=== PATIENT | female | born 1940 | race Caucasian/White ===

== ENCOUNTER 2018-01-07 10:02 | Inpatient (IN) | payer MEDICARE, OTHER, SELFPAY ==
[2018-01-01 10:03] VITALS: BMI 25.7
[2018-01-07] VITALS (21 sets, daily range): BP systolic 96–134; BP diastolic 37–73; PULSE 80–110; RESP 8–17; TEMP 36.1–36.9; O2SAT 90–98; BMI 25.7
--- NOTE | 2018-01-07 | DI.RAD.S_ITS ---
PROCEDURE: XR LUMBAR SPINE 2-3V INDICATIONS: L1-L4 XLIF AND LAMI TECHNIQUE: 2 views of the lumbar spine were acquired. COMPARISON: None. FINDINGS: Intraoperative images demonstrating posterior fixation from L1-L4. Hardware appears intact. There is trace retrolisthesis of L1 on L2 as well as possibly L3 on L4. Hardware obscures the lateral level. IMPRESSION: Postoperative changes above. Dictated by: Erum Smith M.D. on 01/07/2018 at 18:15 Approved by: Erum Smith M.D. on 01/07/2018 at 18:17
[2018-01-07] MEDS: LACTATED RINGERS 1,000 ML 42 ML IV ×3 (11:05→17:06)
--- NOTE | 2018-01-07 11:17 | PM.PREOP ---
Pre-operative Note Interval Note Pre-op Check: History & Physical Reviewed by Physician and Exam Performed
--- NOTE | 2018-01-07 11:32 | PM.OP.1 ---
Operative Date/Time/Diagnoses - Date of procedure: 01/07/18 Time of procedure: 17:58 Pre-op diagnosis: Lumbar stenosis with radiculopathy Lumbar scoliosis History of lumbar fusion Post-op diagnosis: same Procedure & Clinicians Procedure: L1-2, L2-3, L3-4 anterior fusion with cages L1-2, L2-3, L3-4 posterior fusion with screws Iliac crest bone graft Removal of previous hardware L-S1 L3-4 laminectomy Use of microscope Placement of epidural catheter Same procedure as scheduled: Yes Indications: [age] year old female with intractable pain from spinal stenosis. They had failed conservative management and requested operative intervention. Risks and benefits of surgery were discussed and appropriate consents were obtained. Surgeon: Campos Dias Transitional Studies Instructor: Justine Godinez Anesthesia Type: General Operative Notes Findings: none Closure Type: primary Specimen(s): none sent Implants & Drains: NuVasive Reline MAS screws and XLIF cages Estimated Blood Loss (mL): 200 Procedure in detail: Patient was brought to the operating room and intubated on the table. Time-out was performed. They were then rolled over to the lateral decubitus position with the [id number]. The table was bent and they were taped down in the correct position. X-rays were taken to confirm a true AP and lateral. Preoperative antibiotics. The left flank was prepped and draped in standard sterile fashion. Using fluoroscopy, a 3 cm incision was made above the iliac crest. We bluntly dissected down with Metzenbaum scissors and split the 3 abdominal muscle layers. We dissected out the retroperitoneal space and using finger guidance, brought our 1st dilator down to the psoas muscle. Using neuromonitoring and fluoroscopy, we placed it through the psoas onto the L1-2 disc space in an anterior position and gradually pulled the dilator posteriorly along the disc space. We placed our guidewire and measured our depth for the retractor. We then dilated with the next 2 dilators and then placed our retractor over the dilators. Position was confirmed with fluoroscopy and the retractor was locked down to the bar. We opened up the retractor and checked with neuro monitoring. We then placed the kelli and again checked with neuro monitoring. The retractor was opened further and the ALL retractor was placed. An annulotomy was performed. We then performed a complete diskectomy with ring curette, pituitary, box osteotome. A Quesada was advanced across the disc space under fluoroscopy to release the lateral annulus on the opposite side. We then used sequentially larger trials and confirmed under fluoroscopy. An XL IF cage was packed with Osteocell bone graft and impacted into the L1-2 disc space with fluoroscopy for the anterior fusion at this level. The wound was irrigated. The retractor was closed down. The kelli was removed. We carefully removed through a tractor with direct visualization to make sure there was no neurovascular or abdominal injury. X-rays were taken. We then went to the L3-4 and used the same approach with dilating, diskectomy, annular release, and placement of the cage packed with bone graft for the anterior fusion at this level. The retractor was again carefully removed under direct visualization and x-rays were taken. We then went up to L4-5 and used the same approach with dilating, diskectomy, annular release, and placement of the cage packed with bone graft for the anterior fusion at this level. The retractor was again carefully removed under direct visualization and final x-rays were taken The muscle fascia was closed, superficial tissue was closed. The skin was closed. Sterile dressing was placed. The patient was then rolled over on the well-padded prone position on the Ron table. Using fluoroscopy for localization, a 10 cm incision was made to the right of the midline. We split the lumbodorsal fascia. We exposed her old screw at L4 and exposed the screws from L4 through S1. These were Synthes Click-X screws. They were removed with the screwdrivers. We used a ball probe to feel for a floor and 4 arita of the L4 pedicle and then placed a guidewire down that, tapped over it, and placed a larger screw shank into L4 in the previous hole. We then used a Jamshidi needle and using fluoro and monitoring, percutaneously placed this down the pedicle of L3 on the right. This was changed out to a guidewire, tapped and the other screw shank was placed into the L3 bone. The Maxcess retractor was opened up and the gutter and lamina were exposed. We used a bur to decorticate the transverse process of L3 and the previous fusion mass from her old fusion at L4. We then brought the microscope in. A combination of bur and Kerrison rongeur was used to perform a laminectomy at L3-4. We had to remove her massive right sided facet and the the canal was open. We went across the midline and carefully depress the dura and decompressed the full canal. The neural foramina were opened. An epidural catheter was primed and advanced cephalad 6cm under the remaining lamina. The retractor was carefully removed. We then used Jamshidi needles to cannulate the pedicles of L2 and L1 with neuro monitoring and fluoro. We changed these to guidewires. The gutter was exposed and the transverse processes of L1 and L2 were also burred. We then tapped and placed our screws into L1 and L2. The screw heads were placed onto L3 and L4. The cruzito was measured and bent and placed into the screws and the set screws were locked down. The wound was copiously irrigated. A small stab incision was made over the PSIS and a Jamshidi needle was placed into the iliac crest and several mL of bone marrow was aspirated. This was mixed with our locally harvested bone graft as well as the remaining Osteocell and cancellous chips and placed in the posterolateral gutter for fusion at L1-2, L2-3, L3-4. The fascia was then closed. The epidural catheter was then injected with 4mL of 0.5% bupivacaine, 100 mcg fentanyl, 4 mg Duramorph, 1 mg Stadol and removed. We then went to the opposite side and made an 8 cm longitudinal incision with fluoro. We split down and expose the screw head of L4 on the left. We were able to remove the screw heads on the upper 2 screws but the screw head at S1 was stripped. We used a cutting bur tip to split through the cruzito and then the S1 screw was removed helicopter style. We removed the other 2 screws as well. We then used the same techniques to place screws on the left-hand side from L1 through 4 using a Jamshidi, guidewire, tapping, and screw placement all with fluoro and neuro monitoring. The cruzito was placed and locked down. The wound was irrigated. The fascia was closed. Vancomycin powder was placed in the wounds. The superficial and skin were closed. Sterile dressings were placed. The patient was then rolled over, extubated, brought to the recovery room with no complications. Complications: none Condition: stable Disposition: PACU Plan for aftercare: Inpatient. Up with physical therapy.
[2018-01-07] MEDS: CLINDAMYCIN 900 MG/50 ML PIGGYBACK 50 MG IV (12:23)
--- NOTE | 2018-01-07 13:41 | SUR.OPER ---
Right lateral on padded OR table. Head on pillow, gel axillary roll, pillow to support left arm. Legs flexed, pillows between legs, gel pad under down leg and ankle. Multiple passes of 3 inch cloth tape across shoulder, hip, upper and lower legs to secure patient on OR table. for the 2nd part og the case, position switches to Prone on spine table, head in foam head support, padded chest and pelvic supports, gel pad at knees, lower legs supported by pillows; nipples, genitalia and toes free of pressure, arms secured on foam padded arm boards at <90 degrees abduction. Tape over blanket at thigh secured to table.
[2018-01-07] MEDS: VANCOMYCIN 1,000 MG VIAL 1000 MG TOP (13:52)
[2018-01-07] MEDS: THROMBIN (BOVINE) 5,000 UNIT VIAL 5000 UNIT TOP (13:52)
[2018-01-07] MEDS: SODIUM CHLORIDE 0.9% 1,000 ML, GENTAMICIN 80 MG IRR ×2 (13:53→13:56)
[2018-01-07] MEDS: BUPIVACAINE 0.5% (PF) 4 ML, MORPHINE-PF 4 MG, BUTORPHANOL 1 MG, fentaNYL 100 MCG INJ (13:53)
--- NOTE | 2018-01-07 19:26 | SUR.PHASEI ---
Discussed with Dr Wagoner VS and post op findings to 191 and he gives approval to transfer to [facility].
[2018-01-07] MEDS: SODIUM CHLORIDE 0.9% 1,000 ML 125 ML IV (20:34)
[2018-01-07] MEDS: CLINDAMYCIN 600 MG/50 ML PIGGYBACK 50 MG IV (20:35)
[2018-01-08] VITALS (8 sets, daily range): BP systolic 97–141; BP diastolic 47–67; PULSE 89–127; RESP 16–20; TEMP 36.1–38; O2SAT 93–95
[2018-01-08] MEDS: OXYCODONE IR 5 MG TABLET PO ×2 (02:06→04:36)
[2018-01-08] MEDS: CLINDAMYCIN 600 MG/50 ML PIGGYBACK 50 MG IV (04:24)
[2018-01-08 05:44] LABS: Hematocrit 29.6 % (36-46); Hemoglobin 9.6 g/dL (12.0-16.0)
[2018-01-08 05:52] LABS: BUN Creatinine Ratio 17.1 (6-22); Calcium 8.8 mg/dL (8.4-10.2); Estimated Glomerular Filt Rate > 60.0 mL/min (>60); Glucose 98 mg/dL (80-110); HEMOLYSIS < 15 (0-50); Potassium 4.3 mmol/L (3.4-5.1); Sodium 136 mmol/L (137-145)
[2018-01-08] MEDS: SODIUM CHLORIDE 0.9% 1,000 ML 125 ML IV ×3 (06:42→17:38)
[2018-01-08] MEDS: OXYCODONE IR 5 MG TABLET 10 MG PO ×4 (07:02→18:45)
[2018-01-08] MEDS: GABAPENTIN 100 MG CAPSULE 200 MG PO (07:03)
--- NOTE | 2018-01-08 08:14 | P.PN_ITS ---
Subjective Interval history: Pain is 8/10 with moving, all back and abdomen. Leg not bothering her so far. Date Patient Seen: 01/08/18 Time Patient Seen: 08:12 Exam Vital Signs (past 8 hours): Vital Signs - 8 hr 3 01/08/18 05:42 Temperature 97.0 F L Pulse Rate 89 Respiratory Rate 16 Blood Pressure 97/55 L Pulse Oximetry 95 Pulse Oximetry 95 Oxygen Delivery Method Room Air Oxygen Flow Rate 0 Const Orientation: alert and oriented x3 Back/Spine/Pelvis Other: dressing 2cm dry drainage 5/5 motor BLE Objective Labs Result Diagrams: 01/08/18 05:22 01/08/18 05:22 Labs: Laboratory Results - last 24 hr 01/08/18 01/08/18 05:22 05:22 Hgb 9.6 L Hct 29.6 L Sodium 136 L Potassium 4.3 Chloride 102.0 Carbon Dioxide 28.0 BUN 12.0 Creatinine 0.70 Estimated GFR > 60.0 BUN/Creatinine Ratio 17.1 Glucose 98 Calcium 8.8 Assessment & Plan Post-op Postoperative Procedures Operation Date: 01/07/18 11:45 Actual Procedures Side Surgeon p L1-2,L2-3,L3-4 Ant/Post Instru Fusion w/Bone Graft, L3-4 laminectomy Removal Previous Screws Campos Dias MD Normal postop pain. nerve pain seems much better now after surgery. Plan for mobilization with PT. She lives alone and will probably need a snf before being safe enough to go home. Time Spent With Patient less than 15 minutes Quality VTE Deep Vein Thrombosis/Pulmonary Embolism Present on Admission: No
[2018-01-08] MEDS: MORPHINE 4 MG/ML INJ IV ×2 (08:37→21:27)
[2018-01-08] MEDS: ONDANSETRON 4 MG/2 ML INJ IV (08:55)
[2018-01-08] MEDS: lamoTRIgine 100 MG TABLET PO ×3 (09:59→21:50)
[2018-01-08] MEDS: ESTRADIOL 0.5 MG TABLET PO (09:59)
[2018-01-08] MEDS: DOCUSATE 100 MG CAPSULE PO ×2 (09:59→21:51)
[2018-01-08] MEDS: OXYBUTYNIN 5 MG TABLET PO ×2 (09:59→21:51)
[2018-01-08] MEDS: PANTOPRAZOLE 40 MG TABLET PO (10:01)
--- NOTE | 2018-01-08 12:19 | PT.IIE ---
Physical Therapy Inpatient Evaluation/Re-Eval M1 PT/OT-IP Prior Functional Status Start: 01/08/18 08:12 Freq: NEEDED Status: Active Protocol: Document 01/08/18 11:44 RS (Rec: 01/08/18 12:19 [id number]) Medical Review Prior Functional Status Medical History Reviewed Yes Mobility and Gait mod ind w/ FWW Prior Functional Level (Other details) drives. Social History Household Members none Living Arrangements Apartment/Condo Number of Floors (Floors) One Floor Number of Stairs To Enter/Railing? 0STE Home Equipment Front Wheel Walker Employment Status Retired M2 PT-IP Current Condition Start: 01/08/18 08:12 Freq: NEEDED Status: Active Protocol: Document 01/08/18 11:44 RS (Rec: 01/08/18 12:19 [id number]) Physical Therapy Current Condition Current Condition Evaluation Date 01/08/18 Treatment Diagnosis impaired mobility s/p L1-L4 lami revision Onset Date 01/07/18 Post Operative Precautions Lumbar Precautions Log Roll No Twisting Limit Bending Lifting Restriction of 10 lbs Gait Belt above Incisional Area M3 PT-IP Subjective Start: 01/08/18 08:12 Freq: NEEDED Status: Active Protocol: Document 01/08/18 11:44 RS (Rec: 01/08/18 12:19 [id number]) Subjective Physical Therapy Visit Type Type Initial Evaluation Visit Start Time 11:09 Visit Stop Time 11:44 Total Visit Minutes 35 Physical Therapy Visit Comments Patient Comments Pt reports not sleeping very well. Patient/Caregiver Goals less pain, go home Therapy Pain Assessment Pain When Pain Assessed During Mobility Pain Present Pain Present Pain Reported Location Back Intensity 7 Scale Used Numeric (1 - 10) Description Aching Spasm Stabbing Throbbing With Movement Pain Behaviors Facial Grimacing Wincing Pain Management Techniques Apply Cold Modification of Treatment Re-positioning Timing of Activity with Medications M4 PT-IP Mobility and Gait Start: 01/08/18 08:12 Freq: NEEDED Status: Active Protocol: Document 01/08/18 11:44 RS (Rec: 01/08/18 12:19 [id number]) PT-Bed Mobility Assessment Rolling Type of Rolling Log Rolling Roll to Left Level of Assist Maximal Assistance 1 Person Assistance Supine to Sit Supine to Sit Maximum Assistance 2 Person Assistance Bedrails Scooting Scooting to Edge of Bed Maximum Assistance PT-Transfer Assessment Sit to and From Stand Sit to and from Stand Contact Guard Assistance 1 Person Assistance Use of Upper Extremities Equipment Transfer Assistive Device Gait Belt Front Wheeled Walker Transfers Transfer Destination Chair Transfer Technique Stand Step Pivot Transfer Ability Level of Assist Contact Guard Assistance 1 Person Assistance Use of Upper Extremities Gait Assessment Gait Gait Assistance Required: Contact Guard Assist 1 Person Assist Distance (Feet) (feet) 5 Assistive Devices Assistive Device Gait Belt Front Wheeled Walker Gait Deviations General Gait Pattern Antalgic Decreased Stride Length Decreased Feet Clearance Factors Limiting Gait Function Factors Limiting Gait Function Decreased Activity Tolerance Decreased Strength Pain Comments Gait Comments gait is slow, pt began to feel woozy for only walked a short distance. PT-Balance Assessment Sitting Balance and Reactions Static Sitting Balance Ability Good Dynamic Sitting Balance Ability Fair Standing Balance and Reactions Static Standing Balance Ability Fair Dynamic Standing Balance Ability Fair Device Used FWW M5 PT-IP Objective Assessments Start: 01/08/18 08:12 Freq: NEEDED Status: Active Protocol: Document 01/08/18 11:44 RS (Rec: 01/08/18 12:19 [id number]) Orientation Orientation/Cognition Level of Alertness Alert Gross Range of Motion Lower Extremity ROM Assessment Within Functional Limits Strength Comments Strength Comments BLE not formally assessed, functionally strong enough to mobilize out of bed. M6 PT-IP Treatment Start: 01/08/18 08:12 Freq: NEEDED Status: Active Protocol: Document 01/08/18 11:44 RS (Rec: 01/08/18 12:19 RS [id number]) Physical Therapy Treatment Education Post-Op Education Precautions Post-Op Packet Safety M7 PT-IP Assessment and Plan Start: 01/08/18 08:12 Freq: NEEDED Status: Active Protocol: Document 01/08/18 11:44 RS (Rec: 01/08/18 12:19 RS [id number]) PT Summary Assessment and Plan Potential Rehabilitation Potential Good Status of Condition at Evaluation Stable Summary Impairments Pain Strength Bed Mobility Transfers Gait Activity Tolerance Progress Towards Goals Progressing Toward Goals Assessment Summary Pt presents with deficits and functional impairments as expected after a lumbar lami revision. 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 Once pt is out of bed she's able to mobilize at mostly a CGA for short distances. It really is unsafe for pt to return home at this time and she would benefit from ongoing daily low intensity therapy in order to optimize independence. For these reasons transition to a SNF for rehab is recommended. Goals Bed Mobility Goal Minimal Assistance Transfer Goal Contact Guard Assistance Front Wheeled Walker Gait Goal Contact Guard Assistance Front Wheel Walker Gait Distance 50 Days to Meet Goals 2 Frequency of Treatment Frequency Of Treatment Twice a Day Treatment Plan Physical Therapy Treatment Plan Bed Mobility Training Transfer Training Gait Training Therapeutic Exercise Hot or Cold Pack Recommendations To Nursing Amount of Assist Needed 1 Person Assist 2 Person Assist Discharge Recommendations PT Discharge Recommendations SNF Rehab Visit Care Team Role Provider Type Campos Dias MD Admit Provider Physician Attending Provider Current Diagnoses Other forms of scoliosis, lumbar region (01/07/18) Spinal stenosis, lumbar region with neurogenic claudication (01/07/18) Medical History (Last Updated 01/05/18 @ 08:33 by Marry Conklin RN) Anemia (Acute) Arthritis (Acute) Bigeminy (Acute) Bipolar 1 disorder (Acute) CVA (cerebral vascular accident) (Acute) Chronic back pain (Acute) Depression (Acute) GERD (gastroesophageal reflux disease) (Acute) HTN (hypertension) (Acute) History of hysterectomy (Acute) History of revision of total replacement of right knee joint (Acute) Osteoporosis (Acute) Right hemiparesis (Acute) Right radial fracture (Acute) Scoliosis (Acute) Seizure (Acute) Wrist fracture (Acute) Surgery Performed Operation Date: 01/07/18 11:45 Actual Procedures p L1-2,L2-3,L3-4 Ant/Post Instru Fusion w/Bone Graft, L3-4 laminectomy Removal Previous Screws - Campos Dias MD Surgical History (Last Updated 01/01/18 @ 10:16 by Marry Conklin RN) History of arthroplasty of both knees (Acute) History of arthroplasty of left ankle (Acute) History of cataract extraction with lens replacement (Acute) Hx of appendectomy (Acute) Hx of craniotomy (Acute) Hx of hernia repair (Acute) Hx of laminectomy (Acute) S/P Achilles tendon repair (Acute) S/P bunionectomy (Acute) Status post epidural steroid injection (Acute) Status post total shoulder arthroplasty (Acute)
--- NOTE | 2018-01-08 12:31 | CM.DPNOTE ---
PT recommending SNF. Patient agreeable. Patient provided with Medicare choice list and wish to discuss [facility] SNFs with daughter. Patient will provide preferences to CM. Patient is medicare eligible for SNF on Thursday01/10/18.
--- NOTE | 2018-01-08 12:53 | OT.IP.TRT ---
Current Diagnoses Other forms of scoliosis, lumbar region (01/07/18) Spinal stenosis, lumbar region with neurogenic claudication (01/07/18) Surgery Performed Operation Date: 01/07/18 11:45 Actual Procedures p L1-2,L2-3,L3-4 Ant/Post Instru Fusion w/Bone Graft, L3-4 laminectomy Removal Previous Screws - Campos Dias MD Occupational Therapy Treatment Note M2 OT-IP Current Condition Start: 01/08/18 12:37 Freq: Status: Active Protocol: Document 01/08/18 12:38 ADH (Rec: 01/08/18 12:53 ADH [id number]) Occupational Therapy Current Condition Current Condition Evaluation Date 01/08/18 Treatment Diagnosis L1-L4 fusion Diagnosis Onset Date 01/07 Post Operative Precautions Lumbar Precautions Log Roll No Twisting Limit Bending Lifting Restriction of 10 lbs Gait Belt above Incisional Area M3 OT- IP Subjective and Pain Start: 01/08/18 12:37 Freq: Status: Active Protocol: Document 01/08/18 12:38 ADH (Rec: 01/08/18 12:53 ADH [id number]) OT- Subjective Occupational Therapy Visit Type Type Initial Evaluation Visit Start Time 10:55 Visit Stop Time 11:34 Total Visit Minutes 39 Notes Pt agreeable to OT eval, premedicated. OT Pain Assessment Pain When Pain Assessed At Rest Pain Present Pain Present Pain Reported Location Back Intensity 7 Scale Used Numeric (1 - 10) Description Dull Pressure Pain Behaviors Facial Grimacing Guarding Management Techniques Apply Cold Distraction Modification of Treatment Re-positioning Timing of Activity with Medications M4 OT- IP ADL's Start: 01/08/18 12:37 Freq: Status: Active Protocol: Document 01/08/18 12:38 ADH (Rec: 01/08/18 12:53 ADH [id number]) OT ADL-Toileting Comments OT Toileting Comments Dependant d/t catheter M6 OT- IP Functional Cognition Start: 01/08/18 12:37 Freq: Status: Active Protocol: Document 01/08/18 12:38 ADH (Rec: 01/08/18 12:53 ADH [id number]) Cognitive Factors Limiting Selfcare Function Cognitive Ability Level of Alertness Alert Patient Orientation Name Birthday Month Date Year Day of Week Place Situation Attention Span Ability Capable of Focused Attention Capable of Sustained Attention Ability to Follow Commands Able to Follow Multi-Step Commands Memory Description No Deficits Noted Safety Awareness No Deficits Noted Problem Solving Ability No deficits Noted Executive Function Ability No Deficits Noted OT- Vision and Hearing OT- Hearing Assessment OT- Hearing Assessment WFL OT- Vision Assessment Visual Acuity Glasses For Reading Visual Attentiveness WFL M7 OT- IP Mobility and Balance Start: 01/08/18 12:37 Freq: Status: Active Protocol: Document 01/08/18 12:38 ADH (Rec: 01/08/18 12:53 ADH [id number]) OT- Bed Mobility Assessment Rolling Type of Rolling Log Rolling Level of Assistance Moderate Assistance Supine to Sit Supine to Sit Assist Moderate Assistance OT-Transfer Assessment Sit to and From Stand Sit to and from Stand Moderate Assistance Transfers Transfer Ability Minimal Assistance Technique Transfer Destination Chair Transfer Technique Stand Step Pivot Devices Transfer Assistive Devices Front Wheeled Walker M9 OT- IP Assessment and Plan Start: 01/08/18 12:37 Freq: Status: Active Protocol: Document 01/08/18 12:38 ADH (Rec: 01/08/18 12:53 ADH [id number]) OT Summary Assessment and Plan Potential Rehabilitation Potential Excellent Analytic Complexity at Evaluation Low Summary OT Impairments Pain Tone Assessment Summary Pt with good participation in OT eval post op day #1. Pt's progression, transfers, and mobility will be affected by residual affects of previous CVA. Pt noted to have increased tone and rigidity of RUE shoulder through wrist, 0 -70 degree foward flexion at shoulder. Pt able to open all digits with effort and tone, no reports of pain Goals Dressing Goal Minimal Assistance Toileting Goal Minimal Assistance Toilet Transfer Goal Contact Guard Assistance Frequency of Treatment Frequency Of Treatment Once a Day Treatment Plan OT Treatment Plan ADL Training Patient/Family Education Discharge Planning Discharge Recommendations OT Discharge Recommendations SNF Rehab Other Discharge Recommendations Recc pt d/c to SNF with increased supervision and care d/t insufficient support at home, and pt's estimated recovery would benefit from PT /OT
[2018-01-08] MEDS: DOCUSATE 100 MG CAPSULE 400 MG PO (13:29)
--- NOTE | 2018-01-08 14:21 | PT.IPTN ---
Current Diagnoses Other forms of scoliosis, lumbar region (01/07/18) Spinal stenosis, lumbar region with neurogenic claudication (01/07/18) Surgery Performed Operation Date: 01/07/18 11:45 Actual Procedures p L1-2,L2-3,L3-4 Ant/Post Instru Fusion w/Bone Graft, L3-4 laminectomy Removal Previous Screws - Campos Dias MD Physical Therapy Treatment Note M2 PT-IP Current Condition Start: 01/08/18 08:12 Freq: NEEDED Status: Active Protocol: Document 01/08/18 11:44 RS (Rec: 01/08/18 12:19 RS [id number]) Physical Therapy Current Condition Current Condition Evaluation Date 01/08/18 Treatment Diagnosis impaired mobility s/p L1-L4 lami revision Onset Date 01/07/18 Post Operative Precautions Lumbar Precautions Log Roll No Twisting Limit Bending Lifting Restriction of 10 lbs Gait Belt above Incisional Area M3 PT-IP Subjective Start: 01/08/18 08:12 Freq: NEEDED Status: Active Protocol: Document 01/08/18 14:02 RS (Rec: 01/08/18 14:21 RS [id number]) Subjective Physical Therapy Visit Type Type Treatment Note Visit Start Time 13:17 Visit Stop Time 14:02 Total Visit Minutes 45 Physical Therapy Visit Comments Patient Comments Pt initially reporting just wanting to keep resting but with encouragement was agreeable to participate. Therapy Pain Assessment Pain When Pain Assessed At Rest Pain Present Pain Present Pain Reported Location Back Intensity 5 Scale Used Numeric (1 - 10) Description Aching Spasm Stabbing Tender Throbbing With Movement Pain Behaviors Facial Grimacing Moaning Restlessness Wincing Pain Management Techniques Apply Cold Re-positioning Timing of Activity with Medications M4 PT-IP Mobility and Gait Start: 01/08/18 08:12 Freq: NEEDED Status: Active Protocol: Document 01/08/18 14:02 RS (Rec: 01/08/18 14:21 RS [id number]) PT-Bed Mobility Assessment Rolling Level of Assist Moderate Assistance 2 Person Assistance Sit to Supine Sit to Supine Maximum Assistance 2 Person Assistance PT-Transfer Assessment Sit to and From Stand Sit to and from Stand Minimal Assistance 1 Person Assistance Use of Upper Extremities Equipment Transfer Assistive Device Gait Belt Front Wheeled Walker Transfers Transfer Destination Bed Transfer Technique Stand Step Pivot Transfer Ability Level of Assist Contact Guard Assistance 1 Person Assistance Use of Upper Extremities M5 PT-IP Objective Assessments Start: 01/08/18 08:12 Freq: NEEDED Status: Active Protocol: Document 01/08/18 11:44 RS (Rec: 01/08/18 12:19 RS [id number]) Orientation Orientation/Cognition Level of Alertness Alert Gross Range of Motion Lower Extremity ROM Assessment Within Functional Limits Strength Comments Strength Comments BLE not formally assessed, functionally strong enough to mobilize out of bed. M6 PT-IP Treatment Start: 01/08/18 08:12 Freq: NEEDED Status: Active Protocol: Document 01/08/18 11:44 RS (Rec: 01/08/18 12:19 RS [id number]) Physical Therapy Treatment Education Post-Op Education Precautions Post-Op Packet Safety M7 PT-IP Assessment and Plan Start: 01/08/18 08:12 Freq: NEEDED Status: Active Protocol: Document 01/08/18 14:02 RS (Rec: 01/08/18 14:21 RS [email or web address]) PT Summary Assessment and Plan Summary Impairments Pain Strength Bed Mobility Transfers Gait Activity Tolerance Progress Towards Goals Progressing Toward Goals Slow Progress due to Pain Assessment Summary Pt continues to report moderate pain levels (~5/10) at rest but jumps up to 8-9/10 with any activity. Despite this pt was more than willing to participate in session today, however, it was limited due to significant wooziness in standing. BP did not drop compared to sitting. Standing from chair was attempted a few times with the same result each time. Pt was finally able to make it back to bed, attempted to position pt on R side and bolstered with multiple pillows for support. Pt seemed comfortable in this position. Pt continues to present with significant mobility impairments and is unsafe to discharge directly home. Continue to recommend pt to transition to SNF rehab once medically ready. Goals Bed Mobility Goal Minimal Assistance Transfer Goal Contact Guard Assistance Front Wheeled Walker Gait Goal Contact Guard Assistance Front Wheel Walker Gait Distance 50 Days to Meet Goals 2 Frequency of Treatment Frequency Of Treatment Twice a Day Treatment Plan Physical Therapy Treatment Plan Bed Mobility Training Transfer Training Gait Training Therapeutic Exercise Hot or Cold Pack Recommendations To Nursing Amount of Assist Needed 1 Person Assist 2 Person Assist Discharge Recommendations PT Discharge Recommendations SNF Rehab
--- NOTE | 2018-01-08 14:32 | PC.NURSE ---
GOAL; PAIN MANAGEMENT. PAIN CLIMBS TO 8/10 DEPENDING ON ACTIVITY/POSITION. 5/10 AT REST. TAKING 10MG OXYCODONE Q3HRS W/ IV MORPHINE FOR BREAKTHROUGH PAIN. PATIENT C/O NAUSEA THIS AM. GIVEN ZOFRAN WITH RESOLVE. PATIENT HAS NO APPETITE. DRINKING SOME FLUIDS. IVF CONTINUES. PATIENT UP TO RECLINER W/ PHYSICAL THERAPY. NOW SIDELYING WITH SUPPORT PILLOWS AND ICE PACK. DRSG WAS SATURATED. CHANGED TO 4X4 'S X 2 AND COVERSITE, XEROFORM GAUZE LEFT IN PLACE UNDERNEATH.
[2018-01-08] MEDS: hydrOXYzine pamoate 25 MG CAPSULE PO ×2 (15:56→21:54)
--- NOTE | 2018-01-08 20:29 | PC.NURSE ---
Pt was placed on 02 @ 2L per nc for 02 sats 87-88% with sleep. 02 sats increase to 100%. Pt on continuous pulse oximetry d/t pt's sleepy state in managing pt's pain. Monitor reflects pt's heartrate 124 sustained and creeps as high as 125-127. Pt in no apparent distress. Urinary output per baldwin catheter draining freely and iv fluids continue. Tele placed on pt briefly as nursing intervention and per ICU nurse's interpretation, sinus tachycardia. Dr. Corrales was contacted by telephone and these findings were shared with MD. Per Dr. Corrales, continue to manage pt's pain and monitor for any further symptoms. Tele placed on pt as per Dr. Corrales's order and will continue to monitor. No need for hospitalist consult at this time per Dr. Corrales.
[2018-01-08] MEDS: SENNOSIDES 8.6 MG TABLET 17.2 MG PO (21:49)
[2018-01-08] MEDS: LITHIUM ER 300 MG TABLET PO (21:50)
[2018-01-08] MEDS: GABAPENTIN 400 MG CAPSULE PO (21:51)
[2018-01-08] MEDS: lamoTRIgine 25 MG CHEW TABLET PO (21:51)
[2018-01-09] VITALS (10 sets, daily range): BP systolic 125–154; BP diastolic 63–76; PULSE 111–124; RESP 16–20; TEMP 36.4–37.8; O2SAT 93–98
[2018-01-09] MEDS: OXYCODONE IR 5 MG TABLET 10 MG PO ×4 (01:23→19:20)
[2018-01-09] MEDS: SODIUM CHLORIDE 0.9% 1,000 ML 125 ML IV (02:56)
[2018-01-09] MEDS: hydrOXYzine pamoate 25 MG CAPSULE PO ×3 (02:56→19:21)
[2018-01-09] MEDS: OXYCODONE IR 5 MG TABLET PO (08:24)
[2018-01-09] MEDS: DOCUSATE 100 MG CAPSULE PO ×2 (08:31→20:04)
[2018-01-09] MEDS: lamoTRIgine 100 MG TABLET PO ×3 (08:32→20:06)
[2018-01-09] MEDS: GABAPENTIN 100 MG CAPSULE 200 MG PO (08:32)
[2018-01-09] MEDS: LISINOPRIL 20 MG TABLET PO (08:32)
[2018-01-09] MEDS: OXYBUTYNIN 5 MG TABLET PO ×2 (08:33→20:06)
[2018-01-09] MEDS: PANTOPRAZOLE 40 MG TABLET PO (08:33)
[2018-01-09] MEDS: ONDANSETRON 4 MG/2 ML INJ IV (08:59)
--- NOTE | 2018-01-09 09:03 | CM.DPC ---
Addendum entered by Jennifer Saenz LPN 01/09/18 13:11: PASRR is completed and faxed to [facility] in prep for eventual d/c there. Original Note: Addendum entered by Jennifer Saenz LPN 01/09/18 12:59: Pt with multiple comorbidities and medications. Discussed with Lawanda Reyna who agrees consideration of a medicine consult is appropriated. Discussed same with ortho SAIMA Goodwin, she agrees this is appropriate and will discuss same with hospitalist Dr. Marques. 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 She is on multiple medications to manage these conditions and now with the addition of pain medications. Shee has had multiple joint replacements and a prior spinal surgery. Original Note: DCP: continued: Case received, EMR reviewed and met with pt. Introduced self and role. Pt appears very groggy and looks uncomfortable. She confirms she has been in a lot of pain. Confirms her snf plan...defers to her daughter in law, Debora to make snf choice. She says she wants snf to be in [facility] as family are there (her DILs parents). Spoke by phone with Debora ([place]) cell [phone]). Debora states she and her are in process of moving to [facility]. Says pt was very weakened pre-surgery from the debilitating back pain and wants to make sure she is stable in terms of pain management and alertness before she does d/c. [facility] snf choices: discussed. Decision: [facility] CC: referral: Avelina: anticipates bed for pt. Clinicals to efax: [phone] per Avelina's request. Pt is updated. [facility] [place]. P: [facility] when stable for same. White board in room updated with inclusion of Debora's contact number.
--- NOTE | 2018-01-09 11:37 | P.PN_ITS ---
Subjective Date Patient Seen: 01/09/18 Time Patient Seen: 11:36 Interval history: Patient is status post lami/fusion by Dr. Dias postop day 2. Patient has not mobilize much with PT. She has been drowsy today because she was given morphine last night for pain along with oxycodone and Vistaril. Plan for her is to be discharged to [facility] when medically stable. She still has a Adams in and the nurse on the cast keep it for 1 more day because she is slow to mobilize. Care management also would like a hospitalist's consult due to her comorbidities. Exam Vital Signs (past 8 hours): Vital Signs - 8 hr 3 01/09/18 04:46 01/09/18 08:00 01/09/18 08:24 Temperature 99.6 F 99.9 F H 99.9 F H Pulse Rate 124 H 122 H Respiratory Rate 16 20 Blood Pressure 154/68 H 134/65 H Pulse Oximetry 98 95 3 01/09/18 08:32 Temperature Pulse Rate 123 H Respiratory Rate Blood Pressure Pulse Oximetry Pulse Oximetry 95 Oxygen Delivery Method Room Air Oxygen Flow Rate 0 Narrative Exam Narrative: Patient in bed. Patient seems a little drowsy. But dressings clean dry intact. 5/5 bilateral lower extremity strength. Neurovascular status intact. Objective Labs Result Diagrams: 01/08/18 05:22 01/08/18 05:22 Assessment & Plan Post-op (1) Lumbar stenosis with neurogenic claudication: Problem details: Patient is status post lami/fusion by Dr. Dias. PD 2. Pt slow to mobilize. Continue PT. Continue Adams 1 more day. IV morphine prn d/c. D/C to SNF in a few days when medically stable. Current Visit: Yes Status: Acute (2) Scoliosis of lumbar spine: Current Visit: Yes Status: Acute (3) Depression: Problem details: Continue home medication. Medical consult obtained. Current Visit: Yes Status: Acute (4) Postoperative anemia due to acute blood loss: Problem details: HH, Fe and Vt C ordered. Current Visit: Yes Status: Acute Postoperative Procedures Operation Date: 01/07/18 11:45 Actual Procedures Side Surgeon p L1-2,L2-3,L3-4 Ant/Post Instru Fusion w/Bone Graft, L3-4 laminectomy Removal Previous Screws Campos Dias MD Time Spent With Patient less than 15 minutes Quality VTE Deep Vein Thrombosis/Pulmonary Embolism Present on Admission: No
--- NOTE | 2018-01-09 12:00 | PT.IPTN ---
Current Diagnoses Acute posthemorrhagic anemia (01/07/18) Major depressive disorder, single episode, unspecified (01/07/18) Other forms of scoliosis, lumbar region (01/07/18) Scoliosis, unspecified (01/07/18) Spinal stenosis, lumbar region with neurogenic claudication (01/07/18) Surgery Performed Operation Date: 01/07/18 11:45 Actual Procedures p L1-2,L2-3,L3-4 Ant/Post Instru Fusion w/Bone Graft, L3-4 laminectomy Removal Previous Screws - Campos Dias MD Physical Therapy Treatment Note M2 PT-IP Current Condition Start: 01/08/18 08:12 Freq: NEEDED Status: Active Protocol: Document 01/09/18 11:54 RCC (Rec: 01/09/18 12:00 [facility] [id number]) Physical Therapy Current Condition Current Condition Evaluation Date 01/08/18 Treatment Diagnosis impaired mobility s/p L1-L4 lami revision Onset Date 01/07/18 Post Operative Precautions Lumbar Precautions Log Roll No Twisting Limit Bending Lifting Restriction of 10 lbs Gait Belt above Incisional Area M3 PT-IP Subjective Start: 01/08/18 08:12 Freq: NEEDED Status: Active Protocol: Document 01/09/18 11:54 RCC (Rec: 01/09/18 12:00 [facility] [id number]) Subjective Physical Therapy Visit Type Type Treatment Note Visit Start Time 11:25 Visit Stop Time 11:55 Total Visit Minutes 30 Number of [employer]OR OF [employer] Visits 0 Physical Therapy Visit Comments Patient Comments Pt agreeable to get OOB, although c/o pain with any movement (unable to rate). Therapy Pain Assessment Pain When Pain Assessed During Mobility Pain Present Pain Present Pain Reported Location Back Scale Used unable to report Description With Movement Pain Behaviors Calling Out Crying Facial Grimacing Moaning Wincing Pain Management Techniques Modification of Treatment Re-positioning M4 PT-IP Mobility and Gait Start: 01/08/18 08:12 Freq: NEEDED Status: Active Protocol: Document 01/09/18 11:54 RCC (Rec: 01/09/18 12:00 [facility] [id number]) PT-Bed Mobility Assessment Supine to Sit Supine to Sit Maximum Assistance 1 Person Assistance Scooting Scooting to Edge of Bed Maximum Assistance PT-Transfer Assessment Sit to and From Stand Sit to and from Stand Moderate Assistance 1 Person Assistance Equipment Transfer Assistive Device Gait Belt Front Wheeled Walker Transfers Transfer Destination Chair Transfer Technique Stand Step Pivot Transfer Ability Level of Assist Moderate Assistance Comments Mobility Comments Pt crying out in pain in standing, sitting, and with each transfer step. Max VC for safety with transfer. Gait Assessment Comments Gait Comments not safe to ambulate at this time. PT-Balance Assessment Sitting Balance and Reactions Static Sitting Balance Ability Fair Dynamic Sitting Balance Ability Poor Standing Balance and Reactions Static Standing Balance Ability Poor Dynamic Standing Balance Ability Poor Device Used FWW M7 PT-IP Assessment and Plan Start: 01/08/18 08:12 Freq: NEEDED Status: Active Protocol: Document 01/09/18 11:54 RCC (Rec: 01/09/18 12:00 [facility] [id number]) PT Summary Assessment and Plan Summary Impairments Pain ROM Strength Balance Cognition Bed Mobility Transfers Gait Activity Tolerance Progress Towards Goals Slow Progress due to Pain Slow Progress due to Activity Tolerance Assessment Summary Pt unable to rate pain this session, and required maximum verbal cuing in order to keep on task. Pt with crying and moaning with each transfer step using a FWW, but able to perform with Mod A. Pt comfortable in chair sitting upright with back and LE support. Pt is not able to ambulate at this time, will greatly benefit from SNF rehabilitation upon d/c. Goals Bed Mobility Goal Minimal Assistance Transfer Goal Contact Guard Assistance Front Wheeled Walker Gait Goal Contact Guard Assistance Front Wheel Walker Gait Distance 50 Days to Meet Goals 2 Treatment Plan Physical Therapy Treatment Plan Bed Mobility Training Transfer Training Gait Training Therapeutic Exercise Hot or Cold Pack Other Recommendations and Next Treatment transfer, log roll, attempt Focus gait if able Recommendations To Nursing Amount of Assist Needed 2 Person Assist Discharge Recommendations PT Discharge Recommendations SNF Rehab
[2018-01-09] MEDS: DOCUSATE 100 MG CAPSULE 400 MG PO (12:55)
[2018-01-09] MEDS: DEXAMETHASONE 10 MG/ML VIAL IV (12:55)
[2018-01-09] MEDS: ASCORBIC ACID 500 MG TABLET PO (12:56)
[2018-01-09] MEDS: FERROUS SULFATE 325 MG TABLET PO (12:56)
--- NOTE | 2018-01-09 13:34 | OT.IP.TRT ---
Current Diagnoses Acute posthemorrhagic anemia (01/07/18) Major depressive disorder, single episode, unspecified (01/07/18) Other forms of scoliosis, lumbar region (01/07/18) Scoliosis, unspecified (01/07/18) Spinal stenosis, lumbar region with neurogenic claudication (01/07/18) Surgery Performed Operation Date: 01/07/18 11:45 Actual Procedures p L1-2,L2-3,L3-4 Ant/Post Instru Fusion w/Bone Graft, L3-4 laminectomy Removal Previous Screws - Campos Dias MD Occupational Therapy Treatment Note M2 OT-IP Current Condition Start: 01/08/18 12:37 Freq: Status: Active Protocol: Document 01/08/18 12:38 ADH (Rec: 01/08/18 12:53 ADH [id number]) Occupational Therapy Current Condition Current Condition Evaluation Date 01/08/18 Treatment Diagnosis L1-L4 fusion Diagnosis Onset Date 01/07 Post Operative Precautions Lumbar Precautions Log Roll No Twisting Limit Bending Lifting Restriction of 10 lbs Gait Belt above Incisional Area M3 OT- IP Subjective and Pain Start: 01/08/18 12:37 Freq: Status: Active Protocol: Document 01/09/18 13:25 ADH (Rec: 01/09/18 13:34 ADH [id number]) OT- Subjective Occupational Therapy Visit Type Type Treatment Note Visit Start Time 01:04 Visit Stop Time 01:22 Total Visit Minutes 18 Notes Pt seen for functional mobility, positioning, and pain management as related to bADLs OT Pain Assessment Pain When Pain Assessed At Rest Pain Present Pain Present Pain Reported Location Back Pain Behaviors Calling Out Crying Facial Grimacing Moaning Restlessness Management Techniques Distraction Elevation Modification of Treatment Re-positioning M4 OT- IP ADL's Start: 01/08/18 12:37 Freq: Status: Active Protocol: Document 01/08/18 12:38 ADH (Rec: 01/08/18 12:53 ADH [id number]) OT ADL-Toileting Comments OT Toileting Comments Dependant d/t catheter M6 OT- IP Functional Cognition Start: 01/08/18 12:37 Freq: Status: Active Protocol: Document 01/08/18 12:38 ADH (Rec: 01/08/18 12:53 ADH [id number]) Cognitive Factors Limiting Selfcare Function Cognitive Ability Level of Alertness Alert Patient Orientation Name Birthday Month Date Year Day of Week Place Situation Attention Span Ability Capable of Focused Attention Capable of Sustained Attention Ability to Follow Commands Able to Follow Multi-Step Commands Memory Description No Deficits Noted Safety Awareness No Deficits Noted Problem Solving Ability No deficits Noted Executive Function Ability No Deficits Noted OT- Vision and Hearing OT- Hearing Assessment OT- Hearing Assessment WFL OT- Vision Assessment Visual Acuity Glasses For Reading Visual Attentiveness WFL M7 OT- IP Mobility and Balance Start: 01/08/18 12:37 Freq: Status: Active Protocol: Document 01/09/18 13:25 ADH (Rec: 01/09/18 13:34 ADH [email or web address]) OT- Bed Mobility Assessment Rolling Type of Rolling Log Rolling Level of Assistance Moderate Assistance Sit to Supine Sit to Supine Assist Maximum Assistance Scooting Scooting to Edge of Bed Maximum Assistance OT-Transfer Assessment Sit to and From Stand Sit to and from Stand Moderate Assistance 2 Person Assistance Transfers Transfer Ability Moderate Assistance 2 Person Assistance Technique Transfer Destination Bed Transfer Technique Stand Pivot Devices Transfer Assistive Devices Gait Belt Front Wheeled Walker Comments Mobility Comments Pt reported pain in recliner, unable to rate. Pt crying out and moaning, requesting to return to bed. Pt able to be transfered with nursing staff. OT- Gait Assessment Gait Gait Assistance Required: 2 Person Assist Able to Maintain Weight Bearing Status Yes During Gait Assistive Devices Assistive Device Gait Belt Front Wheeled Walker M9 OT- IP Assessment and Plan Start: 01/08/18 12:37 Freq: Status: Active Protocol: Document 01/09/18 13:25 ADH (Rec: 01/09/18 13:34 ADH [email or web address]) OT Summary Assessment and Plan Summary OT Impairments Pain Strength Balance Coordination Progress Towards Goals Slow Progress due to Pain Assessment Summary Pt with very slow progress in functional mobility 2' pain. Pt cont to be dependent on toileting on catheter 2' limited mobility. Pt with fair strength and balance once standing, but kept eyes closed and crying during transfer d/ 2 pain. Anticipate once pain is better managed pt will cont to progress, however anticipate pt to d/c to SNF when appropriate. Goals Dressing Goal Moderate Assistance Toileting Goal Contact Guard Assistance Toilet Transfer Goal Minimal Assistance Frequency of Treatment Frequency Of Treatment Once a Day Treatment Plan OT Treatment Plan ADL Training Functional Mobility Patient/Family Education Discharge Planning Other Treatment Recommendations and Next Address bADLs as able Treatment Focus Discharge Recommendations OT Discharge Recommendations SNF Rehab
--- NOTE | 2018-01-09 14:53 | PT.IPTN ---
Current Diagnoses Acute posthemorrhagic anemia (01/07/18) Major depressive disorder, single episode, unspecified (01/07/18) Other forms of scoliosis, lumbar region (01/07/18) Scoliosis, unspecified (01/07/18) Spinal stenosis, lumbar region with neurogenic claudication (01/07/18) Surgery Performed Operation Date: 01/07/18 11:45 Actual Procedures p L1-2,L2-3,L3-4 Ant/Post Instru Fusion w/Bone Graft, L3-4 laminectomy Removal Previous Screws - Campos Dias MD Physical Therapy Treatment Note M2 PT-IP Current Condition Start: 01/08/18 08:12 Freq: NEEDED Status: Active Protocol: Document 01/09/18 11:54 RCC (Rec: 01/09/18 12:00 RCC [id number]) Physical Therapy Current Condition Current Condition Evaluation Date 01/08/18 Treatment Diagnosis impaired mobility s/p L1-L4 lami revision Onset Date 01/07/18 Post Operative Precautions Lumbar Precautions Log Roll No Twisting Limit Bending Lifting Restriction of 10 lbs Gait Belt above Incisional Area M3 PT-IP Subjective Start: 01/08/18 08:12 Freq: NEEDED Status: Active Protocol: Document 01/09/18 14:52 GGD (Rec: 01/09/18 14:53 GGD [id number]) Subjective Physical Therapy Visit Type Type Patient Unavailable Notes Hold per RN, pt having pain control issues and is now able to sleep, doesn't want to wake pt. Will see in the AM.
--- NOTE | 2018-01-09 16:19 | PC.NURSE ---
Received in bed, somnolent but arousable. VSS, but persistent tachycardia. Tele reading ST. No c/o CP or SOB. Bounding pulse with no murmur noted. Pt. c/o pain at surgical site and abdomen. Medicating with oral analgesics. Effective increased when combined with oral hydroxizine. OOB to chair with PT assist. Tolerated chair for approx. 2 hours, then returned to bed 2/2 c/o pain. IVF NS decreased to KVO. Adams catheter intact to DD, clear, yellow urine. Encouraging IS use. Lungs CTA. Sp02 94% on RA. Discussed plan of care and pain-management with pt.
--- NOTE | 2018-01-09 16:54 | PM.CN ---
History of Present Illness Date Patient Seen: 01/09/18 Time Patient Seen: 16:30 Chief complaint: fusion w/bone graft-see collection notes/CPTs Reason for consult: I was asked by Orthopedic service to help manage this patient's comorbiditi Requesting provider: Campos Dias Narrative: 77-year-old female,patient of Dr. Lucia Reyes with history of spinal stenosis who was admitted to the [facility] 2 days ago for elective lumbar spine surgery with L1-L4 fusion and L3-4 lumbar laminectomy. Postoperatively she had a lot of pain yesterday. She received morphine, oxycodone, and Vistaril. she was noted to be drowsy and dropped her oxygen saturation. She is using incentive spirometry. Patient feels her pain is better today compared to yesterday. She continues to be drowsy. She is not able to provide much history. FOR[facility]LY [facility], LATER [facility] Medical History Postoperative anemia due to acute blood loss (Acute) Depression (Acute) Scoliosis of lumbar spine (Acute) Lumbar stenosis with neurogenic claudication (Acute) Anemia (Acute) Arthritis (Acute) Bigeminy (Acute) Bipolar 1 disorder (Acute) CVA (cerebral vascular accident) (Acute) Chronic back pain (Acute) Depression (Acute) GERD (gastroesophageal reflux disease) (Acute) HTN (hypertension) (Acute) History of hysterectomy (Acute) History of revision of total replacement of right knee joint (Acute) Osteoporosis (Acute) Right hemiparesis (Acute) Right radial fracture (Acute) Scoliosis (Acute) Seizure (Acute) Wrist fracture (Acute) Surgical History History of arthroplasty of both knees (Acute) History of arthroplasty of left ankle (Acute) History of cataract extraction with lens replacement (Acute) Hx of appendectomy (Acute) Hx of craniotomy (Acute) Hx of hernia repair (Acute) Hx of laminectomy (Acute) S/P Achilles tendon repair (Acute) S/P bunionectomy (Acute) Status post epidural steroid injection (Acute) Status post total shoulder arthroplasty (Acute) Social History household members: none Smoking Status: Former smoker Comment: She is . She lives alone in a condo. Denies alcohol drinking or cigarette smoking. Meds Home Medications Medication Instructions Recorded Confirmed Type docusate sodium [Dulcolax Stool 400 mg PO DAILY 01/01/18 01/01/18 History Softener (dss)] estradiol 0.5 mg PO EVERY OTHER DAY 01/01/18 01/01/18 History gabapentin 600 mg PO SEEINSTR 01/01/18 01/07/18 History lamotrigine [Lamictal] 25 mg PO BEDTIME 01/01/18 01/01/18 History lamotrigine [Lamictal] 100 mg PO TID 01/01/18 01/07/18 History lisinopril 20 mg PO DAILY 01/01/18 01/01/18 History lithium carbonate [Lithobid] 300 mg PO DAILY 01/01/18 01/01/18 History oxybutynin chloride 5 mg PO BID 01/01/18 01/07/18 History oxycodone 10 mg PO Q3H PRN 01/01/18 01/07/18 History pantoprazole 40 mg PO QAM 01/01/18 01/07/18 History Allergies Allergy/AdvReac Type Severity Reaction Status Date / Time Penicillins Allergy Severe Welts, Verified 01/01/18 10:31 Swelling, Throat swelling Sulfa (Sulfonamide Allergy Severe Rash, Verified 01/01/18 10:57 Antibiotics) Itching latex Allergy Intermediate Rash Verified 01/01/18 10:57 tramadol AdvReac Severe Vomiting, Verified 01/01/18 10:57 mild pancreatitis associated with use zolpidem AdvReac Severe Pyschosis Verified 01/01/18 10:57 hydromorphone [From Dilaudid] AdvReac Gastrointestinal Verified 01/01/18 10:31 Upset Review of Systems Review of Systems Complete review of system is difficult to obtain due to patient's drowsiness and confusion. Exam Vital Signs (past 8 hours): Vital Signs - 8 hr 01/09/18 12:00 01/09/18 16:03 Temperature 97.5 F L 98.1 F Pulse Rate 112 H 117 H Respiratory Rate 20 17 Blood Pressure 125/63 H 130/72 H Pulse Oximetry 96 94 Pulse Oximetry 94 Oxygen Delivery Method Room Air Oxygen Flow Rate 0 Narrative Exam Narrative: GENERAL: Obese middle-aged woman in no acute distress. HEENT: Head normocephalic, atraumatic. Eyes pupils equal round; pale conjunctiva NECK: Supple, no JVD, CHEST: Breath sounds equal bilaterally, no wheezes rales or rhonchi. CARDIAC: Regular rate and rhythm without murmurs, rubs or gallops. ABDOMEN: Soft, nontender. Normoactive bowel sounds all 4 quadrants. No guarding or rebound. EXTREMITIES: Normal range of motion, no clubbing or edema. NEUROLOGICAL: Lethargic, arousable with verbal stimuli, able to answer some questions. Normal muscle strength. SKIN: Warm, dry, no petechiae, no rashes or lesions. Objective Labs Result Diagrams: 01/08/18 05:22 01/08/18 05:22 Assessment & Plan Plan: Plan: 1. Probable acute blood loss anemia secondary to recent spine surgery. Recheck hemoglobin. Transfuse if needed. She was started on iron supplement. 2. Lumbar stenosis, status post lumbar spine laminectomy and fusion surgery: Followed by orthopedic service 3. Hypertension: Her blood pressure is reasonably controlled. Continue current dose of lisinopril. 4. Bipolar disorder: Continue lamotrigine and lithium per outpatient dosing 5. DVT prophylaxis: Consider starting DVT prophylaxis when it is considered safe by orthopedic service.
[2018-01-09 16:57] LABS: Appearance Urine UA CLEAR; Bilirubin Urine UA NEGATIVE (NEGATIVE); Color Urine UA YELLOW; Glucose Urine UA NEGATIVE (Negative); Ketones Urine UA 1+ (NEGATIVE); Leukocyte Esterase Urine UA NEGATIVE (NEGATIVE); Nitrite Urine UA Negative (Negative); Occult Blood Urine UA TRACE-INTACT (Negative); Protein Urine UA NEGATIVE (Negative); Urobilinogen Urine UA 0.2 E.U./dL (0.2)
[2018-01-09 17:12] LABS: Hematocrit 31.6 % (36-46); Hemoglobin 10.4 g/dL (12.0-16.0)
[2018-01-09] MEDS: DEXAMETHASONE 4 MG/ML VIAL IV (18:24)
[2018-01-09] MEDS: LITHIUM ER 300 MG TABLET PO (20:05)
[2018-01-09] MEDS: GABAPENTIN 400 MG CAPSULE PO (20:05)
[2018-01-09] MEDS: lamoTRIgine 25 MG CHEW TABLET PO (20:05)
[2018-01-09] MEDS: SENNOSIDES 8.6 MG TABLET 17.2 MG PO (20:06)
[2018-01-09] MEDS: SODIUM CHLORIDE 0.9% FLUSH 10 ML IV (22:25)
--- NOTE | 2018-01-09 23:09 | PC.NURSE ---
1827 infusion complete of normal saline had total waste of 800ml.
[2018-01-10] VITALS (7 sets, daily range): BP systolic 112–146; BP diastolic 54–78; PULSE 90–123; RESP 16–21; TEMP 36.3–37.4; O2SAT 95–100
[2018-01-10] MEDS: DEXAMETHASONE 4 MG/ML VIAL IV ×2 (00:03→05:19)
[2018-01-10] MEDS: OXYCODONE IR 5 MG TABLET 10 MG PO ×4 (00:05→21:29)
--- NOTE | 2018-01-10 06:55 | PC.NURSE ---
NOC note: Pt received all scheduled doses of dexamethasone, she took prn Oxycodone 10mg twice this shift with good results, pt reported that her was down to 4-5/10 at 0515 the morning. BT x4 and hypoactive this shift, pt denies nausea but reports lack of appetite.
[2018-01-10] MEDS: ONDANSETRON 4 MG/2 ML INJ IV ×2 (08:44→15:54)
[2018-01-10] MEDS: ASCORBIC ACID 500 MG TABLET PO (08:49)
[2018-01-10] MEDS: OXYBUTYNIN 5 MG TABLET PO ×2 (08:49→21:37)
[2018-01-10] MEDS: FERROUS SULFATE 325 MG TABLET PO (08:50)
[2018-01-10] MEDS: lamoTRIgine 100 MG TABLET PO ×3 (08:50→21:37)
[2018-01-10] MEDS: PANTOPRAZOLE 40 MG TABLET PO (08:50)
[2018-01-10] MEDS: GABAPENTIN 100 MG CAPSULE 200 MG PO (08:50)
[2018-01-10] MEDS: LISINOPRIL 20 MG TABLET PO (08:50)
[2018-01-10] MEDS: DOCUSATE 100 MG CAPSULE PO ×2 (08:51→21:29)
[2018-01-10] MEDS: SODIUM CHLORIDE 0.9% FLUSH 10 ML IV ×3 (08:51→21:38)
[2018-01-10] MEDS: OXYCODONE IR 5 MG TABLET PO (08:54)
--- NOTE | 2018-01-10 09:49 | P.PN_ITS ---
Exam Vital Signs (past 8 hours): Vital Signs - 8 hr 3 01/10/18 05:00 01/10/18 08:36 Temperature 99.3 F 97.4 F L Pulse Rate 119 H 109 H Respiratory Rate 20 18 Blood Pressure 131/70 H 146/78 H Pulse Oximetry 98 95 Pulse Oximetry 95 Oxygen Delivery Method Room Air Oxygen Flow Rate 0 Objective Labs Result Diagrams: 01/09/18 17:05 01/08/18 05:22 Labs: Laboratory Results - last 24 hr 01/09/18 01/09/18 16:14 17:05 Hgb 10.4 L Hct 31.6 L Urine Color Yellow Urine Appearance Clear Urine pH 6.0 Ur Specific [place] 1.010 Urine Protein Negative Urine Glucose (UA) Negative Urine Ketones 1+ H Urine Occult Blood Trace-intact Urine Nitrate Negative Urine Bilirubin Negative Urine Urobilinogen 0.2 Ur Leukocyte Esterase Negative Assessment & Plan Plan: Plan: Patient is admitted after surgery. Patient has been stable and progressing with physical therapy slowly. Patient is neurovascularly intact on exam. Patient has no signs or symptoms of DVT. Patient's dressing is clean dry and intact. Patient will require additional mobility and training. Will re-assess tomorrow. Quality VTE Deep Vein Thrombosis/Pulmonary Embolism Present on Admission: No
--- NOTE | 2018-01-10 11:15 | PM.PN.1 ---
Subjective Date Patient Seen: 01/10/18 Time Patient Seen: 11:00 Interval history: Patient seemed to be more alert today. She still has significant pain in her back. She rates the severity of the pain as 9/10. She was able to sit at the edge of the bed with assistance and is current a trying to work with physical therapy. Exam Vital Signs (past 8 hours): Vital Signs - 8 hr 01/10/18 05:00 01/10/18 08:36 Temperature 99.3 F 97.4 F L Pulse Rate 119 H 109 H Respiratory Rate 20 18 Blood Pressure 131/70 H 146/78 H Pulse Oximetry 98 95 Pulse Oximetry 95 Oxygen Delivery Method Room Air Oxygen Flow Rate 0 Narrative Exam Narrative: GENERAL: Elderly middle-aged woman in no acute distress. CHEST: Breath sounds equal bilaterally, no wheezes rales or rhonchi. CARDIAC: Regular rate and rhythm without murmurs, rubs or gallops. ABDOMEN: Soft, nontender. Normoactive bowel sounds all 4 quadrants. No guarding or rebound. Back: Dressing in place with dressing looks clean. The left hip graft site dressing also was clean. No significant soft tissue swelling. EXTREMITIES: Normal range of motion, no clubbing or edema. NEUROLOGICAL: Lethargic, arousable with verbal stimuli, able to answer some questions. Normal muscle strength. SKIN: Warm, dry, no petechiae, no rashes or lesions. Objective Labs Result Diagrams: 01/09/18 17:05 01/08/18 05:22 Labs: Laboratory Results - last 24 hr 01/09/18 01/09/18 16:14 17:05 Hgb 10.4 L Hct 31.6 L Urine Color Yellow Urine Appearance Clear Urine pH 6.0 Ur Specific [place] 1.010 Urine Protein Negative Urine Glucose (UA) Negative Urine Ketones 1+ H Urine Occult Blood Trace-intact Urine Nitrate Negative Urine Bilirubin Negative Urine Urobilinogen 0.2 Ur Leukocyte Esterase Negative Assessment & Plan Plan: Plan: 1. Probable acute blood loss anemia secondary to recent spine surgery. Her recheck hemoglobin was stable. No need for transfusion at this time. Continue iron supplement. 2. Lumbar stenosis, status post lumbar spine laminectomy and fusion surgery: Followed by orthopedic service. Continue oxycodone for pain control. Continue PT/OT. 3. Hypertension: Her blood pressure is reasonably controlled. She was noted to be tachycardic, possibly secondary to pain. We will start her on low-dose metoprolol for cardio protection. Decrease lisinopril from 20 mg once a day to 10 mg once a day. Continue monitor her blood pressure readings. 4. Bipolar disorder: Continue lamotrigine and lithium per outpatient dosing 5. DVT prophylaxis: Consider starting DVT prophylaxis when it is considered safe by orthopedic service. Quality VTE Deep Vein Thrombosis/Pulmonary Embolism Present on Admission: No
--- NOTE | 2018-01-10 11:33 | PT.IPTN ---
Current Diagnoses Acute posthemorrhagic anemia (01/07/18) Major depressive disorder, single episode, unspecified (01/07/18) Other forms of scoliosis, lumbar region (01/07/18) Scoliosis, unspecified (01/07/18) Spinal stenosis, lumbar region with neurogenic claudication (01/07/18) Surgery Performed Operation Date: 01/07/18 11:45 Actual Procedures p L1-2,L2-3,L3-4 Ant/Post Instru Fusion w/Bone Graft, L3-4 laminectomy Removal Previous Screws - Campos Dias MD Physical Therapy Treatment Note M2 PT-IP Current Condition Start: 01/08/18 08:12 Freq: NEEDED Status: Active Protocol: Document 01/10/18 11:15 [facility] (Rec: 01/10/18 11:33 [facility] [id number]) Physical Therapy Current Condition Current Condition Evaluation Date 01/08/18 Treatment Diagnosis impaired mobility s/p L1-L4 lami revision Onset Date 01/07/18 Post Operative Precautions Lumbar Precautions Log Roll No Twisting Limit Bending Lifting Restriction of 10 lbs Gait Belt above Incisional Area M3 PT-IP Subjective Start: 01/08/18 08:12 Freq: NEEDED Status: Active Protocol: Document 01/10/18 11:15 RCC (Rec: 01/10/18 11:33 [facility] [id number]) Subjective Physical Therapy Visit Type Type Treatment Note Visit Start Time 10:55 Visit Stop Time 11:15 Total Visit Minutes 20 Notes pt sleeping in bed on arrival. Number of OPTOMETRIST Visits 0 Physical Therapy Visit Comments Patient Comments Pt notes that her pain is 9/10 . Therapy Pain Assessment Pain When Pain Assessed At Rest Pain Present Pain Present Pain Reported Location Back Intensity 9 Scale Used Numeric (1 - 10) Pain Behaviors Facial Grimacing Pain Management Techniques Re-positioning Timing of Activity with Medications M4 PT-IP Mobility and Gait Start: 01/08/18 08:12 Freq: NEEDED Status: Active Protocol: Document 01/10/18 11:15 RCC (Rec: 01/10/18 11:33 [facility] [id number]) PT-Bed Mobility Assessment Rolling Type of Rolling Log Rolling Level of Assist Maximal Assistance 1 Person Assistance Supine to Sit Supine to Sit Maximum Assistance 1 Person Assistance Scooting Scooting to Edge of Bed Moderate Assistance PT-Transfer Assessment Sit to and From Stand Sit to and from Stand Moderate Assistance 1 Person Assistance Equipment Transfer Assistive Device Gait Belt Front Wheeled Walker Transfers Transfer Destination Chair Transfer Technique Stand Step Pivot Transfer Ability Level of Assist Moderate Assistance 1 Person Assistance Comments Mobility Comments RLE ER, requires assistance with managing FWW (especially R side d/t weakness) Gait Assessment Gait Gait Assistance Required: Moderate Assistance Distance (Feet) (feet) 10 Assistive Devices Assistive Device Gait Belt Front Wheeled Walker Gait Deviations General Gait Pattern Antalgic Decreased Stride Length Decreased Feet Clearance Factors Limiting Gait Function Factors Limiting Gait Function Decreased Strength Pain Poor Balance Poor Safety Awareness Comments Gait Comments Requires assistance with R side of FWW managment d/t weakness/limited function RUE. PT-Balance Assessment Sitting Balance and Reactions Static Sitting Balance Ability Good Dynamic Sitting Balance Ability Good Standing Balance and Reactions Static Standing Balance Ability Poor Dynamic Standing Balance Ability Poor Device Used FWW M5 PT-IP Objective Assessments Start: 01/08/18 08:12 Freq: NEEDED Status: Active Protocol: Document 01/08/18 11:44 RS (Rec: 01/08/18 12:19 RS [id number]) Orientation Orientation/Cognition Level of Alertness Alert Gross Range of Motion Lower Extremity ROM Assessment Within Functional Limits Strength Comments Strength Comments BLE not formally assessed, functionally strong enough to mobilize out of bed. M6 PT-IP Treatment Start: 01/08/18 08:12 Freq: NEEDED Status: Active Protocol: Document 01/10/18 11:15 [facility] (Rec: 01/10/18 11:33 [facility] [id number]) Physical Therapy Treatment Education Post-Op Education Precautions Safety M7 PT-IP Assessment and Plan Start: 01/08/18 08:12 Freq: NEEDED Status: Active Protocol: Document 01/10/18 11:15 RCC (Rec: 01/10/18 11:33 [facility] [id number]) PT Summary Assessment and Plan Summary Impairments Pain Strength Balance Cognition Bed Mobility Transfers Gait Activity Tolerance Progress Towards Goals Slow Progress due to Pain Slow Progress due to Medical Issues Slow Progress due to Activity Tolerance Assessment Summary Pt continues to be lethargic, although more alert this date compared to yesterday. Pt with c/o 9/10 pain, but was unable to rate yesterday. She requires manual assistance to manage the FWW due to limited function of RUE, and ambulate with excessive RLE ER and decreased foot clearance bilaterally. Pt is not safe to return home, and is at high risk for falls. She would greatly benefit from SNF rehabilitation upon d/c. Goals Bed Mobility Goal Minimal Assistance Transfer Goal Contact Guard Assistance Front Wheeled Walker Gait Goal Contact Guard Assistance Front Wheel Walker Gait Distance 50 Days to Meet Goals 2 Treatment Plan Physical Therapy Treatment Plan Bed Mobility Training Transfer Training Gait Training Therapeutic Exercise Hot or Cold Pack Other Recommendations and Next Treatment transfer, log roll, gait as Focus tolerated. Recommendations To Nursing Amount of Assist Needed 2 Person Assist Discharge Recommendations PT Discharge Recommendations SNF Rehab
--- NOTE | 2018-01-10 13:37 | PC.NURSE ---
Received in bed, awake, alert, oriented. Pt. declined breakfast and requesting medication for nausea. Medication effective. Medicated for reported 7/10 back pain. VSS, but remains in sinus tachycardia per telemetry. Lungs CTA. No c/o CP or SOB. Urinary catheter secured to DD. R hand PIV flushed and patent. Encouraging IS. OOB to chair with PT assist. In chair for 90 minutes.
--- NOTE | 2018-01-10 13:53 | CM.DPNOTE ---
DCP: continued: Spoke with [place] Reyna this morning. He noted that steroids were ordered late yesterday and this seems to have markedly helped pt. She has been able to work a bit with therapy and, most importantly, has not been writhing and whimpering in pain as she did for many hour yesterday. [place] Reyna planned to call Debora today to update her on the medication specific Updated clinic is faxed to [facility]. P: remains d/c to [facility] when stable for same. Ambulance transport is likely if pt continues close to current level of mobility. PASRR was faxed to [facility] yesterday. CM/dcp team to keep Debora updated, per pt's request.
--- NOTE | 2018-01-10 13:59 | PT.IPTN ---
Current Diagnoses Acute posthemorrhagic anemia (01/07/18) Major depressive disorder, single episode, unspecified (01/07/18) Other forms of scoliosis, lumbar region (01/07/18) Scoliosis, unspecified (01/07/18) Spinal stenosis, lumbar region with neurogenic claudication (01/07/18) Surgery Performed Operation Date: 01/07/18 11:45 Actual Procedures p L1-2,L2-3,L3-4 Ant/Post Instru Fusion w/Bone Graft, L3-4 laminectomy Removal Previous Screws - Campos Dias MD Physical Therapy Treatment Note M2 PT-IP Current Condition Start: 01/08/18 08:12 Freq: NEEDED Status: Active Protocol: Document 01/10/18 11:15 RCC (Rec: 01/10/18 11:33 [facility] [id number]) Physical Therapy Current Condition Current Condition Evaluation Date 01/08/18 Treatment Diagnosis impaired mobility s/p L1-L4 lami revision Onset Date 01/07/18 Post Operative Precautions Lumbar Precautions Log Roll No Twisting Limit Bending Lifting Restriction of 10 lbs Gait Belt above Incisional Area M3 PT-IP Subjective Start: 01/08/18 08:12 Freq: NEEDED Status: Active Protocol: Document 01/10/18 12:51 [facility] (Rec: 01/10/18 13:58 [facility] [id number]) Subjective Physical Therapy Visit Type Type Treatment Note Visit Start Time 12:40 Visit Stop Time 12:51 Total Visit Minutes 11 Notes pt up with CAREER AND TECHNOLOGY EDUCATION TEACHER and second assistance from chair to bed, PT in at this time to assist with bed mobility. Number of DIRECTOR RADIO Visits 0 Physical Therapy Visit Comments Patient Comments Pt wishes to get lying on her R side (@ time pt sitting on EOB). Therapy Pain Assessment Pain When Pain Assessed At Rest Pain Present Pain Present Pain Reported Location Back Intensity 9 Scale Used Numeric (1 - 10) Pain Behaviors Facial Grimacing Moaning Restlessness Pain Management Techniques Modification of Treatment Re-positioning M4 PT-IP Mobility and Gait Start: 01/08/18 08:12 Freq: NEEDED Status: Active Protocol: Document 01/10/18 12:51 [facility] (Rec: 01/10/18 13:58 [facility] [id number]) PT-Bed Mobility Assessment Rolling Type of Rolling Log Rolling Level of Assist Maximal Assistance 1 Person Assistance Sit to Supine Sit to Supine Maximum Assistance 1 Person Assistance PT-Transfer Assessment Comments Mobility Comments pt transferred by 2 CNAs prior to this session. PT-Balance Assessment Sitting Balance and Reactions Static Sitting Balance Ability Fair Dynamic Sitting Balance Ability Poor M7 PT-IP Assessment and Plan Start: 01/08/18 08:12 Freq: NEEDED Status: Active Protocol: Document 01/10/18 12:51 [facility] (Rec: 01/10/18 13:58 [facility] [id number]) PT Summary Assessment and Plan Summary Impairments Pain Strength Balance Bed Mobility Progress Towards Goals Slow Progress due to Pain Slow Progress due to Medical Issues Slow Progress due to Activity Tolerance Assessment Summary Pt transferred with nursing staff to EOB, with pt grasping at EOB and her FWW for support. She refused to ambulate, but was assisted with reverse log roll to the L side with Max A x1 and Max VC for technique/preparation. Pt rolled to R side and positioned pillows for comfort , max A required for rolling. Goals Bed Mobility Goal Minimal Assistance Transfer Goal Contact Guard Assistance Front Wheeled Walker Gait Goal Contact Guard Assistance Front Wheel Walker Gait Distance 50 Days to Meet Goals 2 Frequency of Treatment Frequency Of Treatment Twice a Day Treatment Plan Physical Therapy Treatment Plan Bed Mobility Training Transfer Training Gait Training Therapeutic Exercise Hot or Cold Pack Other Recommendations and Next Treatment transfer, log roll, gait as Focus tolerated (chair follow or second assist). Recommendations To Nursing Amount of Assist Needed 2 Person Assist Discharge Recommendations PT Discharge Recommendations SNF Rehab
--- NOTE | 2018-01-10 15:48 | PC.NURSE ---
Extensive discussion by phone with pt. [id number]. Updated on plan of care and pt. condition.
[2018-01-10] MEDS: hydrOXYzine pamoate 25 MG CAPSULE PO ×2 (17:35→21:38)
[2018-01-10] MEDS: GABAPENTIN 400 MG CAPSULE PO (18:41)
[2018-01-10] MEDS: lamoTRIgine 25 MG CHEW TABLET PO (21:33)
[2018-01-10] MEDS: LITHIUM ER 300 MG TABLET PO (21:36)
[2018-01-10] MEDS: METOPROLOL 25 MG TABLET PO (21:37)
[2018-01-10] MEDS: SENNOSIDES 8.6 MG TABLET 17.2 MG PO (21:37)
[2018-01-10] MEDS: MAGNESIUM HYDROXIDE 30 ML UDC PO (21:39)
[2018-01-11] VITALS (9 sets, daily range): BP systolic 108–125; BP diastolic 52–66; PULSE 80–98; RESP 16–20; TEMP 36.7–37.3; O2SAT 94–99
[2018-01-11] MEDS: hydrOXYzine pamoate 25 MG CAPSULE PO (03:00)
[2018-01-11] MEDS: OXYCODONE IR 5 MG TABLET 10 MG PO ×5 (03:01→21:17)
--- NOTE | 2018-01-11 05:56 | PC.NURSE ---
shift mechanic- Pt moaning outloud in bed, call light within reach, reminded pt to use call light for help or to request pain medications. Rates 8/10 aching to mid/lower back, prn Oxycodone 10mg given at 0300 & 25mg Vistaril prn at 0300 for intermittent spasms. Upon reassessment, pt asleep with RR 20bpm. Pt took meds one at a time whole with applesauce, no difficulty noted. Pt repositioned in bed 2X, pt refused turn at 0530, prefers to lay on right side supported with pillows. Joshua foot SCD's on throughout shift. Adams insitu draining clear yellow to darin urine. enc po intake when awake and during med pass. Remains on telemetry monitoring, 2400/0400 NSR as documented by GAME DESIGN INSTRUCTOR. No BM post op yet, passing little flatus. High fall risk precautions in place, bed alarm on.
[2018-01-11] MEDS: ONDANSETRON 4 MG/2 ML INJ IV (09:02)
[2018-01-11] MEDS: lamoTRIgine 100 MG TABLET PO ×3 (09:56→21:18)
[2018-01-11] MEDS: DOCUSATE 100 MG CAPSULE PO ×2 (09:56→21:16)
[2018-01-11] MEDS: GABAPENTIN 100 MG CAPSULE 200 MG PO (09:56)
[2018-01-11] MEDS: PANTOPRAZOLE 40 MG TABLET PO (09:57)
[2018-01-11] MEDS: OXYBUTYNIN 5 MG TABLET PO ×2 (09:57→21:16)
[2018-01-11] MEDS: LISINOPRIL 10 MG TABLET PO (09:58)
[2018-01-11] MEDS: METOPROLOL 25 MG TABLET PO ×2 (09:58→21:18)
[2018-01-11] MEDS: SODIUM CHLORIDE 0.9% FLUSH 10 ML IV ×2 (09:58→21:18)
--- NOTE | 2018-01-11 11:04 | OT.IP.TRT ---
Current Diagnoses Acute posthemorrhagic anemia (01/07/18) Major depressive disorder, single episode, unspecified (01/07/18) Other forms of scoliosis, lumbar region (01/07/18) Scoliosis, unspecified (01/07/18) Spinal stenosis, lumbar region with neurogenic claudication (01/07/18) Surgery Performed Operation Date: 01/07/18 11:45 Actual Procedures p L1-2,L2-3,L3-4 Ant/Post Instru Fusion w/Bone Graft, L3-4 laminectomy Removal Previous Screws - Campos Dias MD Occupational Therapy Treatment Note M2 OT-IP Current Condition Start: 01/08/18 12:37 Freq: Status: Active Protocol: Document 01/08/18 12:38 [facility] (Rec: 01/08/18 12:53 [facility] [id number]) Occupational Therapy Current Condition Current Condition Evaluation Date 01/08/18 Treatment Diagnosis L1-L4 fusion Diagnosis Onset Date 01/07 Post Operative Precautions Lumbar Precautions Log Roll No Twisting Limit Bending Lifting Restriction of 10 lbs Gait Belt above Incisional Area M3 OT- IP Subjective and Pain Start: 01/08/18 12:37 Freq: Status: Active Protocol: Document 01/11/18 10:23 [facility] (Rec: 01/11/18 11:04 [facility] [id number]) OT- Subjective Occupational Therapy Visit Type Type Treatment Note Visit Start Time 10:23 Visit Stop Time 10:53 Total Visit Minutes 30 Notes Pt agreeable to get up. OT Pain Assessment Pain When Pain Assessed At Rest Pain Present Pain Present Pain Reported M4 OT- IP ADL's Start: 01/08/18 12:37 Freq: Status: Active Protocol: Document 01/11/18 10:23 [facility] (Rec: 01/11/18 11:04 [facility] [id number]) OT ADL-Grooming General Evaluation Grooming Ability Moderate Assistance Areas Needing Assistance Retrieving/Set-up of Grooming Items Combing/Brushing Hair Comments OT Grooming Comments Pt able to wash her face and hands. OT ADL-Oral Care General Eval Oral Care Ability Minimal Assistance Areas of Assistance Retrieving/Set-Up of Items Comments Oral Care Comments Pt able to do oral care with assist to hold cup and for set -up due to right UE weakness and decreased control. OT ADL-Toileting General Evaluation Toileting Ability Total Assistance Comments OT Toileting Comments Dependant d/t catheter OT ADL-Bathing Bathing Type Bathing Type Sponge Bath General Evaluation Bathing Ability Maximal Assistance Areas Needing Assistance Retrieving/Setting Up Items Wash/Dry Back Wash/Dry Perineal Area Wash/Dry Lower Extremities Comments OT Bathing Comments Pt able to sit in BSC and assist to wash/dry face and arms otherwise dependent. M6 OT- IP Functional Cognition Start: 01/08/18 12:37 Freq: Status: Active Protocol: Document 01/11/18 10:23 [facility] (Rec: 01/11/18 11:04 [facility] [id number]) Cognitive Factors Limiting Selfcare Function Cognitive Ability Level of Alertness Alert Attention Span Ability Capable of Focused Attention Capable of Sustained Attention Ability to Follow Commands Able to Follow Multi-Step Commands M7 OT- IP Mobility and Balance Start: 01/08/18 12:37 Freq: Status: Active Protocol: Document 01/11/18 10:23 [facility] (Rec: 01/11/18 11:04 [facility] [id number]) OT- Bed Mobility Assessment Rolling Type of Rolling Log Rolling Roll to Left Level of Assistance Maximum Assistance 2 Person Assistance Supine to Sit Supine to Sit Assist Maximum Assistance 2 Person Assistance OT-Transfer Assessment Sit to and From Stand Sit to and from Stand Maximum Assistance 2 Person Assistance Transfers Transfer Ability Maximum Assistance 2 Person Assistance Technique Transfer Destination Bedside Commode Transfer Technique Stand Pivot Devices Transfer Assistive Devices Gait Belt Front Wheeled Walker Comments Mobility Comments MAX vc to move her RLE, Assist for for FWW sequence, RUE control, balance, and all postioning needs. OT- Balance Assessment Sitting Balance and Reactions Static Sitting Balance Ability Fair Dynamic Sitting Balance Ability Poor M9 OT- IP Assessment and Plan Start: 01/08/18 12:37 Freq: Status: Active Protocol: Document 01/11/18 10:23 [facility] (Rec: 01/11/18 11:04 [facility] [id number]) OT Summary Assessment and Plan Potential Rehabilitation Potential Good Analytic Complexity at Evaluation Low Summary OT Impairments Pain Strength Balance Coordination Progress Towards Goals Slow Progress due to Pain Slow Progress due to Activity Tolerance Assessment Summary Due to pain and decreased activity tolerance, pt slow to progress. Inaddition decreased use of right UE on FWW making in difficult to mobilize. Goals Dressing Goal Moderate Assistance Toileting Goal Minimal Assistance Toilet Transfer Goal Minimal Assistance Frequency of Treatment Frequency Of Treatment Once a Day Treatment Plan OT Treatment Plan ADL Training Functional Mobility Patient/Family Education Discharge Planning Other Treatment Recommendations and Next use of AED for dressing needs, Treatment Focus standing at the sink. Discharge Recommendations OT Discharge Recommendations SNF Rehab
--- NOTE | 2018-01-11 11:21 | PM.PN.1 ---
Subjective Date Patient Seen: 01/11/18 Time Patient Seen: 11:37 Interval history: I feel like I have been hit by a train. Patient states she continues to have 9/10 lower back discomfort at rest. She is able to take a few steps with assistance and has remained in the chair much of the morning. Exam Vital Signs (past 8 hours): Vital Signs - 8 hr 01/11/18 03:36 01/11/18 05:54 01/11/18 07:27 Temperature 99.1 F Pulse Rate 98 H Respiratory Rate 20 16 20 Blood Pressure 123/66 H Pulse Oximetry 94 01/11/18 08:29 01/11/18 09:58 Temperature 98.2 F Pulse Rate 94 H 95 H Respiratory Rate 16 Blood Pressure 108/65 116/55 L Pulse Oximetry 96 Pulse Oximetry 96 Oxygen Delivery Method Room Air Oxygen Flow Rate 0 Narrative Exam Narrative: GENERAL: Obese middle-aged woman in no apparent acute distress although she reports 9/10 low back pain. HEENT: Head normocephalic, atraumatic. Eyes pupils equal round; pale conjunctiva NECK: Supple, no JVD, CHEST: Breath sounds equal bilaterally, bibasilar rales, no wheezes or rhonchi. CARDIAC: Regular rate and rhythm without murmurs, rubs or gallops. ABDOMEN: Soft, nontender. Normoactive bowel sounds. No guarding or rebound. : Adams to down drain in place with clear darin urine. 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 no clubbing or edema. NEUROLOGICAL: Awake alert and oriented x3. Answers all questions appropriately. Has good thought process. Normal muscle strength, with exception of right-sided deficit from previous CVA. SKIN: Warm, dry, no petechiae, no rashes or lesions. Dressing over posterior lumbar region dry and intact. Objective Labs Result Diagrams: 01/09/18 17:05 01/08/18 05:22 Assessment & Plan Plan: Plan: 1. Probable acute blood loss anemia secondary to recent spine surgery although EBL was only 200 mL. Could be dilutional as well. Her recheck hemoglobin was stable. No need for transfusion at this time. Continue iron supplement. 2. Lumbar stenosis, status post lumbar spine laminectomy and fusion surgery: Followed by orthopedic service. Continue oxycodone for pain control. Continue PT/OT. Encourage out of bed mobility. 3. Hypertension: Her blood pressure is reasonably controlled. She was noted to be tachycardic, possibly secondary to pain but today has a heart rate in the mid 90s. We will continue her on low-dose metoprolol. 4. Bipolar disorder: Continue lamotrigine and lithium per outpatient dosing. 5. DVT prophylaxis: Consider starting DVT prophylaxis when it is considered safe by orthopedic service. 6. Disposition: [facility] if she is more mobile and requires less pain management. Quality VTE Deep Vein Thrombosis/Pulmonary Embolism Present on Admission: No
--- NOTE | 2018-01-11 11:49 | PT.IPTN ---
Current Diagnoses Acute posthemorrhagic anemia (01/07/18) Major depressive disorder, single episode, unspecified (01/07/18) Other forms of scoliosis, lumbar region (01/07/18) Scoliosis, unspecified (01/07/18) Spinal stenosis, lumbar region with neurogenic claudication (01/07/18) Surgery Performed Operation Date: 01/07/18 11:45 Actual Procedures p L1-2,L2-3,L3-4 Ant/Post Instru Fusion w/Bone Graft, L3-4 laminectomy Removal Previous Screws - Campos Dias MD Physical Therapy Treatment Note M2 PT-IP Current Condition Start: 01/08/18 08:12 Freq: NEEDED Status: Active Protocol: Document 01/10/18 11:15 [facility] (Rec: 01/10/18 11:33 [facility] [id number]) Physical Therapy Current Condition Current Condition Evaluation Date 01/08/18 Treatment Diagnosis impaired mobility s/p L1-L4 lami revision Onset Date 01/07/18 Post Operative Precautions Lumbar Precautions Log Roll No Twisting Limit Bending Lifting Restriction of 10 lbs Gait Belt above Incisional Area M3 PT-IP Subjective Start: 01/08/18 08:12 Freq: NEEDED Status: Active Protocol: Document 01/11/18 10:23 [facility] (Rec: 01/11/18 11:49 [facility] [email or web address]) Subjective Physical Therapy Visit Type Type Treatment Note Visit Start Time 10:23 Visit Stop Time 10:52 Total Visit Minutes 29 Number of LINEWORKER Visits 1 Physical Therapy Visit Comments Patient Comments RN requesting pt up on BSC for sponge bath and get to chiar. Therapy Pain Assessment Pain When Pain Assessed During Mobility Pain Present Pain Present Pain Reported Location Back Pain Behaviors Facial Grimacing Moaning Restlessness Pain Management Techniques Modification of Treatment Re-positioning M4 PT-IP Mobility and Gait Start: 01/08/18 08:12 Freq: NEEDED Status: Active Protocol: Document 01/11/18 10:23 [facility] (Rec: 01/11/18 11:49 [facility] [id number]) PT-Bed Mobility Assessment Rolling Type of Rolling Log Rolling Level of Assist Maximal Assistance 2 Person Assistance Supine to Sit Supine to Sit Moderate Assistance 2 Person Assistance PT-Transfer Assessment Sit to and From Stand Sit to and from Stand Maximum Assistance 2 Person Assistance Equipment Transfer Assistive Device Gait Belt Front Wheeled Walker Transfers Transfer Destination Chair Bedside Commode Transfer Technique Stand Step Pivot Transfer Ability Level of Assist Maximum Assistance 2 Person Assistance Comments Mobility Comments Pt needed Max A x2 for most bed mobility and sit-stand. Pt needed assist with RUE during transfer, assist with walker and Max verbal cues for sequencing steps. M5 PT-IP Objective Assessments Start: 01/08/18 08:12 Freq: NEEDED Status: Active Protocol: Document 01/08/18 11:44 [facility] (Rec: 01/08/18 12:19 [facility] [id number]) Orientation Orientation/Cognition Level of Alertness Alert Gross Range of Motion Lower Extremity ROM Assessment Within Functional Limits Strength Comments Strength Comments BLE not formally assessed, functionally strong enough to mobilize out of bed. M6 PT-IP Treatment Start: 01/08/18 08:12 Freq: NEEDED Status: Active Protocol: Document 01/10/18 11:15 [facility] (Rec: 01/10/18 11:33 [facility] [id number]) Physical Therapy Treatment Education Post-Op Education Precautions Safety M7 PT-IP Assessment and Plan Start: 01/08/18 08:12 Freq: NEEDED Status: Active Protocol: Document 01/11/18 10:23 [facility] (Rec: 01/11/18 11:49 [facility] [id number]) PT Summary Assessment and Plan Summary Impairments Pain Strength Balance Bed Mobility Progress Towards Goals Slow Progress due to Pain Slow Progress due to Medical Issues Slow Progress due to Activity Tolerance Assessment Summary Pt was lethargic and cried out in pain. Pt was able to sit on BSC while MIXED SIGNAL DESIGN ENGINEER gave her a sponge bath then pt was transfered to chair by LINEWORKER and OT. Pt unable to ambulate at this time due to fatigue and pain. Goals Bed Mobility Goal Minimal Assistance Transfer Goal Contact Guard Assistance Front Wheeled Walker Gait Goal Contact Guard Assistance Front Wheel Walker Gait Distance 50 Days to Meet Goals 2 Frequency of Treatment Frequency Of Treatment Twice a Day Treatment Plan Physical Therapy Treatment Plan Bed Mobility Training Transfer Training Gait Training Therapeutic Exercise Hot or Cold Pack Other Recommendations and Next Treatment transfer, log roll, gait as Focus tolerated (chair follow or second assist). Recommendations To Nursing Amount of Assist Needed 2 Person Assist Discharge Recommendations PT Discharge Recommendations SNF Rehab
--- NOTE | 2018-01-11 11:52 | P.PN_ITS ---
Subjective Date Patient Seen: 01/11/18 Time Patient Seen: 11:37 Interval history: I feel like I have been hit by a train. Patient states she continues to have 9/10 lower back discomfort at rest. She is able to take a few steps with assistance and has remained in the chair much of the morning. Exam Vital Signs (past 8 hours): Vital Signs - 8 hr 3 01/11/18 03:36 01/11/18 05:54 01/11/18 07:27 Temperature 99.1 F Pulse Rate 98 H Respiratory Rate 20 16 20 Blood Pressure 123/66 H Pulse Oximetry 94 3 01/11/18 08:29 01/11/18 09:58 Temperature 98.2 F Pulse Rate 94 H 95 H Respiratory Rate 16 Blood Pressure 108/65 116/55 L Pulse Oximetry 96 Pulse Oximetry 96 Oxygen Delivery Method Room Air Oxygen Flow Rate 0 Narrative Exam Narrative: GENERAL: Obese middle-aged woman in no apparent acute distress although she reports 9/10 low back pain. HEENT: Head normocephalic, atraumatic. Eyes pupils equal round; pale conjunctiva NECK: Supple, no JVD, CHEST: Breath sounds equal bilaterally, bibasilar rales, no wheezes or rhonchi. CARDIAC: Regular rate and rhythm without murmurs, rubs or gallops. ABDOMEN: Soft, nontender. Normoactive bowel sounds. No guarding or rebound. : Adams to down drain in place with clear darin urine. 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 no clubbing or edema. NEUROLOGICAL: Awake alert and oriented x3. Answers all questions appropriately. Has good thought process. Normal muscle strength, with exception of right-sided deficit from previous CVA. SKIN: Warm, dry, no petechiae, no rashes or lesions. Dressing over posterior lumbar region dry and intact. Objective Labs Result Diagrams: 01/09/18 17:05 01/08/18 05:22 Assessment & Plan Plan: Plan: 1. Probable acute blood loss anemia secondary to recent spine surgery although EBL was only 200 mL. Could be dilutional as well. Her recheck hemoglobin was stable. No need for transfusion at this time. Continue iron supplement. 2. Lumbar stenosis, status post lumbar spine laminectomy and fusion surgery: Followed by orthopedic service. Continue oxycodone for pain control. Continue PT/OT. Encourage out of bed mobility. 3. Hypertension: Her blood pressure is reasonably controlled. She was noted to be tachycardic, possibly secondary to pain but today has a heart rate in the mid 90s. We will continue her on low-dose metoprolol. 4. Bipolar disorder: Continue lamotrigine and lithium per outpatient dosing. 5. DVT prophylaxis: Consider starting DVT prophylaxis when it is considered safe by orthopedic service. 6. Disposition: Plan for transfer to alf facility mid week if she is more mobile and requires less pain management. Quality VTE Deep Vein Thrombosis/Pulmonary Embolism Present on Admission: No
[2018-01-11] MEDS: BISACODYL 10 MG SUPP PR (11:59)
--- NOTE | 2018-01-11 12:03 | P.PN_ITS ---
Exam Vital Signs (past 8 hours): Vital Signs - 8 hr 3 01/11/18 05:54 01/11/18 07:27 01/11/18 08:29 Temperature 99.1 F 98.2 F Pulse Rate 98 H 94 H Respiratory Rate 16 20 16 Blood Pressure 123/66 H 108/65 Pulse Oximetry 94 96 3 01/11/18 09:58 Temperature Pulse Rate 95 H Respiratory Rate Blood Pressure 116/55 L Pulse Oximetry Pulse Oximetry 96 Oxygen Delivery Method Room Air Oxygen Flow Rate 0 Objective Labs Result Diagrams: 01/09/18 17:05 01/08/18 05:22 Assessment & Plan Plan: Plan: Patient is admitted after surgery. Patient has been stable and progressing with physical therapy. Patient is neurovascularly intact on exam. Patient has no signs or symptoms of DVT. Patient's dressing is clean dry and intact. Patient is slow to mobility. Will need SNF placement. Continue current care. Quality VTE Deep Vein Thrombosis/Pulmonary Embolism Present on Admission: No
--- NOTE | 2018-01-11 13:06 | CM.DPC ---
DCP Ongoing Assmt: Pt sleeping soundly when DCP visited, did not wake her. She has reported 9/10 pain today and has been medicated. DCP spoke with PAC Javed Anthony earlier today who checked on DC plan ([facility]) and stated she may be ready to d/c tomorrow. His later note, after report of the high pain level and minimal ability to mobilize, is that she may be ready to transfer to SNF mid week. Work with therapy and report of pain control will determine readiness to d/c. Contacted: DCP called MONIKA Montoya at [phone] and left VM message (no HPI disclosed) that patient may d/c as early as tomorrow to [facility] as planned, as long as mobilization is adequate and pain is under good control for transfer. Left her the DCP phone # if she would like to call back or get more info. Contacted [facility] and spoke with Kristin who confirmed that they are saving a bed for this patient. Confirmed that she would likely need to be transported by ambulance ([facility] DCP to set up once D/c orders are confirmed). All is in order for transfer; PASSR is on file at [facility], and they would need d/c summary and remainder of SNF d/c documents upon day of discharge. Plan: Monitor d/c plan carefully, may be as early as , 01/12. Contact [facility] if NOT d/c on 01/12; let them know of updates. DCP to f/u by arranging (likely) ambulance transport once d/c orders are in. F/u phone call to keep MONIKA Cazares informed. Anya Lima RN
--- NOTE | 2018-01-11 13:46 | PT.IPTN ---
Current Diagnoses Acute posthemorrhagic anemia (01/07/18) Major depressive disorder, single episode, unspecified (01/07/18) Other forms of scoliosis, lumbar region (01/07/18) Scoliosis, unspecified (01/07/18) Spinal stenosis, lumbar region with neurogenic claudication (01/07/18) Surgery Performed Operation Date: 01/07/18 11:45 Actual Procedures p L1-2,L2-3,L3-4 Ant/Post Instru Fusion w/Bone Graft, L3-4 laminectomy Removal Previous Screws - Campos Dias MD Physical Therapy Treatment Note M2 PT-IP Current Condition Start: 01/08/18 08:12 Freq: NEEDED Status: Active Protocol: Document 01/10/18 11:15 [facility] (Rec: 01/10/18 11:33 [facility] [id number]) Physical Therapy Current Condition Current Condition Evaluation Date 01/08/18 Treatment Diagnosis impaired mobility s/p L1-L4 lami revision Onset Date 01/07/18 Post Operative Precautions Lumbar Precautions Log Roll No Twisting Limit Bending Lifting Restriction of 10 lbs Gait Belt above Incisional Area M3 PT-IP Subjective Start: 01/08/18 08:12 Freq: NEEDED Status: Active Protocol: Document 01/11/18 12:00 [facility] (Rec: 01/11/18 13:46 [facility] [email or web address]) Subjective Physical Therapy Visit Type Type Treatment Note Visit Start Time 12:00 Visit Stop Time 12:10 Total Visit Minutes 10 Number of DOUGHNUT ICER MACHINE Visits 2 Physical Therapy Visit Comments Patient Comments Pt wanting to get back to bed due to severe pain. Therapy Pain Assessment Pain When Pain Assessed At Rest Pain Present Pain Present Pain Reported M4 PT-IP Mobility and Gait Start: 01/08/18 08:12 Freq: NEEDED Status: Active Protocol: Document 01/11/18 12:00 [facility] (Rec: 01/11/18 13:46 [facility] [id number]) PT-Bed Mobility Assessment Rolling Type of Rolling Log Rolling Level of Assist Maximal Assistance 2 Person Assistance Sit to Supine Sit to Supine Maximum Assistance 2 Person Assistance PT-Transfer Assessment Sit to and From Stand Sit to and from Stand Maximum Assistance 2 Person Assistance Equipment Transfer Assistive Device Gait Belt Front Wheeled Walker Transfers Transfer Destination Bed Transfer Technique Stand Step Pivot Transfer Ability Level of Assist Maximum Assistance 2 Person Assistance Comments Mobility Comments Pt needs increased assist due to pain. M5 PT-IP Objective Assessments Start: 01/08/18 08:12 Freq: NEEDED Status: Active Protocol: Document 01/08/18 11:44 RS (Rec: 01/08/18 12:19 RS [id number]) Orientation Orientation/Cognition Level of Alertness Alert Gross Range of Motion Lower Extremity ROM Assessment Within Functional Limits Strength Comments Strength Comments BLE not formally assessed, functionally strong enough to mobilize out of bed. M6 PT-IP Treatment Start: 01/08/18 08:12 Freq: NEEDED Status: Active Protocol: Document 01/10/18 11:15 [facility] (Rec: 01/10/18 11:33 [facility] [id number]) Physical Therapy Treatment Education Post-Op Education Precautions Safety M7 PT-IP Assessment and Plan Start: 01/08/18 08:12 Freq: NEEDED Status: Active Protocol: Document 01/11/18 12:00 [facility] (Rec: 01/11/18 13:46 [facility] [email or web address]) PT Summary Assessment and Plan Summary Impairments Pain Strength Balance Bed Mobility Progress Towards Goals Slow Progress due to Pain Slow Progress due to Medical Issues Slow Progress due to Activity Tolerance Assessment Summary Pts needs increased assist due to pain and is not tolerating transfers without crying out. Pt was able to get comfortable laying on right side with bed tilted to right. Goals Bed Mobility Goal Minimal Assistance Transfer Goal Contact Guard Assistance Front Wheeled Walker Gait Goal Contact Guard Assistance Front Wheel Walker Gait Distance 50 Days to Meet Goals 2 Frequency of Treatment Frequency Of Treatment Twice a Day Treatment Plan Physical Therapy Treatment Plan Bed Mobility Training Transfer Training Gait Training Therapeutic Exercise Hot or Cold Pack Other Recommendations and Next Treatment transfer, log roll, gait as Focus tolerated (chair follow or second assist). Recommendations To Nursing Amount of Assist Needed 2 Person Assist Discharge Recommendations PT Discharge Recommendations SNF Rehab
--- NOTE | 2018-01-11 14:06 | CM.DPC ---
AZP Ongoing Assmt: MONIKA Montoya ([phone]) returned VM call and spoke with DCP at some length -- she is concerned that family is not up here to monitor and is afraid that pt will be d/c to [facility] before she is ready. DCP explained that pt will not be d/c until her pain is adequately under control and she mobilizes more with therapy. She was reassured. MONIKA expressed wish to talk directly with the patient, so DCP to give her cell # and that of patient's son Christiano ([phone]) to attending nurse with message to have the patient call one of them today. Further information: Debora and spouse are getting their home ready for sale in [place] and feel badly that they are not up here to monitor the situation more closely. DCP Then visited patient room again. She was awake but drowsy, and DCP told her of conversation with Debora. Wrote Christiano's cell # on her whiteboard (Debora's was already there), and she stated she will call them today. Will try Debora first, as Christiano is a airplane pilot and pt reluctant to call him and disrupt his work. Then spoke with attending nurse Tiffany who took both phone numbers and will assist patient to call her DIL or son today. Called [facility] back and gave update to Kristin: told her that it is not likely pt will be ready to d/c tomorrow r/t high pain and limited mobilization. She may be ready by Thu or , DCP to keep in touch with them on this. Anya Lima RN
[2018-01-11] MEDS: LITHIUM ER 300 MG TABLET PO (21:16)
[2018-01-11] MEDS: SENNOSIDES 8.6 MG TABLET 17.2 MG PO (21:16)
[2018-01-11] MEDS: lamoTRIgine 25 MG CHEW TABLET PO (21:18)
[2018-01-11] MEDS: GABAPENTIN 400 MG CAPSULE PO (21:18)
[2018-01-12] MEDS: OXYCODONE IR 5 MG TABLET 10 MG PO ×2 (00:23→04:14)
[2018-01-12] MEDS: hydrOXYzine pamoate 25 MG CAPSULE PO ×4 (02:28→18:38)
[2018-01-12 04:27] VITALS: BP 142/74; PULSE 91; RESP 16; TEMP 37.2; O2SAT 95
[2018-01-12 07:33] VITALS: BP 143/68; PULSE 96; RESP 18; TEMP 36.8; O2SAT 97
[2018-01-12] MEDS: OXYCODONE IR 10 MG TABLET PO ×3 (07:59→18:38)
--- NOTE | 2018-01-12 08:55 | P.PN_ITS ---
Subjective Date Patient Seen: 01/12/18 Time Patient Seen: 08:55 Interval history: POD #5 status post L1-2,L2-3,L3-4 Ant/Post Instrumentation Fusion w/Bone Graft, L3-4 laminectomy Removal Previous Screws with Dr. Dias. Patient is in a lot of pain this morning. She has had very limited mobility. Last dose of steroids was IV dexamethasone on Thursday. She has not had any Tylenol, and states she has no problems taking this. Only taking oxycodone 10 mg, and Vistaril for pain control. Plan will be to DC to [facility] once stable. Had urinary retention last night and Adams placed again. Medicine is managing her cardiac medications. Okay to DC cardiac telemetry today. Exam Vital Signs (past 8 hours): Vital Signs - 8 hr 3 01/12/18 04:27 01/12/18 07:33 Temperature 99.0 F 98.2 F Pulse Rate 91 H 96 H Respiratory Rate 16 18 Blood Pressure 142/74 H 143/68 H Pulse Oximetry 95 97 Pulse Oximetry 97 Oxygen Delivery Method Room Air Oxygen Flow Rate 0 Narrative Exam Narrative: Patient lying in bed and very tearful. She is alert and oriented x3. She is able to actively dorsiflex and plantar flex. Sensation intact to light touch throughout bilateral lower extremities. Pulses symmetrical. Calves are soft, compressible, nontender bilaterally. Objective Labs Result Diagrams: 01/09/18 17:05 01/08/18 05:22 Assessment & Plan Post-op Postoperative Procedures Operation Date: 01/07/18 11:45 Actual Procedures Side Surgeon p L1-2,L2-3,L3-4 Ant/Post Instru Fusion w/Bone Graft, L3-4 laminectomy Removal Previous Screws Campos Dias MD POD #5 status post L1-2,L2-3,L3-4 Ant/Post Instrumentation Fusion w/Bone Graft, L3-4 laminectomy Removal Previous Screws with Dr. Dias. Will start p.o. Tylenol 625 every 4 hr as needed. One last dose of methylprednisone p.o. 10 mg to be given now. DC cardiac telemetry today. Adams catheter will remain in place until more mobile with PT. She will get up and ambulate with PT. Continue cardiac medication recommendations by Medicine. Patient's pain is not well-controlled since surgery, urinary retention last night, and slow to recover following surgery. Likely to discharge to [facility] tomorrow for continued rehabilitation following surgery. Time Spent With Patient less than 15 minutes Quality VTE Deep Vein Thrombosis/Pulmonary Embolism Present on Admission: No
[2018-01-12] MEDS: ACETAMINOPHEN 325 MG TABLET 650 MG PO ×3 (09:01→21:42)
[2018-01-12] MEDS: methylPREDNISolone 4 MG TABLET 10 MG PO (09:54)
[2018-01-12] MEDS: LISINOPRIL 10 MG TABLET PO (09:54)
[2018-01-12] MEDS: ESTRADIOL 0.5 MG TABLET PO (09:54)
[2018-01-12] MEDS: DOCUSATE 100 MG CAPSULE PO ×2 (09:55→21:37)
[2018-01-12] MEDS: OXYBUTYNIN 5 MG TABLET PO ×2 (09:55→21:38)
[2018-01-12] MEDS: METOPROLOL 25 MG TABLET PO ×2 (09:55→21:38)
[2018-01-12] MEDS: ASCORBIC ACID 500 MG TABLET PO (09:56)
[2018-01-12] MEDS: FERROUS SULFATE 325 MG TABLET PO (09:56)
[2018-01-12] MEDS: GABAPENTIN 100 MG CAPSULE 200 MG PO (09:57)
[2018-01-12] MEDS: PANTOPRAZOLE 40 MG TABLET PO (09:58)
[2018-01-12] MEDS: lamoTRIgine 100 MG TABLET PO ×3 (09:58→21:37)
[2018-01-12] MEDS: SODIUM CHLORIDE 0.9% FLUSH 10 ML IV ×2 (09:59→21:38)
[2018-01-12 11:00] VITALS: BP 115/58; PULSE 74; RESP 18; TEMP 36.6; O2SAT 96
--- NOTE | 2018-01-12 11:28 | PT.IPTN ---
Current Diagnoses Acute posthemorrhagic anemia (01/07/18) Major depressive disorder, single episode, unspecified (01/07/18) Other forms of scoliosis, lumbar region (01/07/18) Scoliosis, unspecified (01/07/18) Spinal stenosis, lumbar region with neurogenic claudication (01/07/18) Surgery Performed Operation Date: 01/07/18 11:45 Actual Procedures p L1-2,L2-3,L3-4 Ant/Post Instru Fusion w/Bone Graft, L3-4 laminectomy Removal Previous Screws - Campos Dias MD Physical Therapy Treatment Note M2 PT-IP Current Condition Start: 01/08/18 08:12 Freq: NEEDED Status: Active Protocol: Document 01/10/18 11:15 RCC (Rec: 01/10/18 11:33 RCC [id number]) Physical Therapy Current Condition Current Condition Evaluation Date 01/08/18 Treatment Diagnosis impaired mobility s/p L1-L4 lami revision Onset Date 01/07/18 Post Operative Precautions Lumbar Precautions Log Roll No Twisting Limit Bending Lifting Restriction of 10 lbs Gait Belt above Incisional Area M3 PT-IP Subjective Start: 01/08/18 08:12 Freq: NEEDED Status: Active Protocol: Document 01/12/18 11:20 AB (Rec: 01/12/18 11:27 AB [id number]) Subjective Physical Therapy Visit Type Type Treatment Note Visit Start Time 10:15 Visit Stop Time 10:50 Total Visit Minutes 35 Number of LAYOUT DESIGNER Visits 0 Physical Therapy Visit Comments Patient Comments pt agreeable to do therapy Therapy Pain Assessment Pain When Pain Assessed During Mobility Pain Present Pain Present Pain Reported Location Back Scale Used pain scale not stated Pain Behaviors Guarding Moaning Pain Management Techniques Apply Cold Timing of Activity with Medications M4 PT-IP Mobility and Gait Start: 01/08/18 08:12 Freq: NEEDED Status: Active Protocol: Document 01/12/18 11:20 AB (Rec: 01/12/18 11:27 AB [id number]) PT-Bed Mobility Assessment Rolling Level of Assist Maximal Assistance 2 Person Assistance Supine to Sit Supine to Sit Maximum Assistance 2 Person Assistance Scooting Scooting to Edge of Bed Maximum Assistance PT-Transfer Assessment Sit to and From Stand Sit to and from Stand Maximum Assistance 2 Person Assistance Equipment Transfer Assistive Device Gait Belt Front Wheeled Walker Transfers Transfer Destination Chair Transfer Technique Stand Step Pivot Transfer Ability Level of Assist Maximum Assistance 2 Person Assistance Comments Mobility Comments pt with RUE hand/finger contracture and increase flexor tone with movement and needs assistance for RUE stabilization. pt also presents with RLE weakness and unable to really push down on RLE during sit to stand with increarse internal rotation. Gait Assessment Gait Gait Assistance Required: Moderate Assistance Maximum Assistance 2 Person Assist Distance (Feet) (feet) 5 Able to Maintain Weight Bearing Status Yes During Gait Assistive Devices Assistive Device Platform Walker Orthotic/Prosthetic Devices or Brace: No Gait Deviations General Gait Pattern Antalgic Decreased Stride Length Decreased Feet Clearance Step-to Gait Factors Limiting Gait Function Factors Limiting Gait Function Decreased Activity Tolerance Decreased Strength Pain Poor Balance Poor Safety Awareness Comments Gait Comments used platform walker during ambulation and pt was able to maintain RUE on platform once positioned. M5 PT-IP Objective Assessments Start: 01/08/18 08:12 Freq: NEEDED Status: Active Protocol: Document 01/08/18 11:44 RS (Rec: 01/08/18 12:19 RS [id number]) Orientation Orientation/Cognition Level of Alertness Alert Gross Range of Motion Lower Extremity ROM Assessment Within Functional Limits Strength Comments Strength Comments BLE not formally assessed, functionally strong enough to mobilize out of bed. M6 PT-IP Treatment Start: 01/08/18 08:12 Freq: NEEDED Status: Active Protocol: Document 01/10/18 11:15 RCC (Rec: 01/10/18 11:33 RCC [id number]) Physical Therapy Treatment Education Post-Op Education Precautions Safety M7 PT-IP Assessment and Plan Start: 01/08/18 08:12 Freq: NEEDED Status: Active Protocol: Document 01/12/18 11:20 AB (Rec: 01/12/18 11:27 AB [id number]) PT Summary Assessment and Plan Potential Rehabilitation Potential Fair Summary Impairments Pain ROM Strength Balance Coordination Sensation Tone Cognition Bed Mobility Transfers Gait Activity Tolerance Progress Towards Goals Slow Progress due to Medical Issues Assessment Summary pt continues to require 2 person assist with mobility and will need SNF rehab to improve function. Goals Bed Mobility Goal Minimal Assistance Transfer Goal Contact Guard Assistance Front Wheeled Walker Gait Goal Contact Guard Assistance Front Wheel Walker Gait Distance 50 Days to Meet Goals 2 Frequency of Treatment Frequency Of Treatment Twice a Day Treatment Plan Physical Therapy Treatment Plan Bed Mobility Training Transfer Training Gait Training Therapeutic Exercise Hot or Cold Pack Other Recommendations and Next Treatment transfer, log roll, gait as Focus tolerated (chair follow or second assist). Recommendations To Nursing Amount of Assist Needed 2 Person Assist Discharge Recommendations PT Discharge Recommendations SNF Rehab
--- NOTE | 2018-01-12 11:51 | OT.IP.TRT ---
Current Diagnoses Acute posthemorrhagic anemia (01/07/18) Major depressive disorder, single episode, unspecified (01/07/18) Other forms of scoliosis, lumbar region (01/07/18) Scoliosis, unspecified (01/07/18) Spinal stenosis, lumbar region with neurogenic claudication (01/07/18) Surgery Performed Operation Date: 01/07/18 11:45 Actual Procedures p L1-2,L2-3,L3-4 Ant/Post Instru Fusion w/Bone Graft, L3-4 laminectomy Removal Previous Screws - Campos Dias MD Occupational Therapy Treatment Note M2 OT-IP Current Condition Start: 01/08/18 12:37 Freq: Status: Active Protocol: Document 01/08/18 12:38 ADH (Rec: 01/08/18 12:53 ADH [id number]) Occupational Therapy Current Condition Current Condition Evaluation Date 01/08/18 Treatment Diagnosis L1-L4 fusion Diagnosis Onset Date 01/07 Post Operative Precautions Lumbar Precautions Log Roll No Twisting Limit Bending Lifting Restriction of 10 lbs Gait Belt above Incisional Area M3 OT- IP Subjective and Pain Start: 01/08/18 12:37 Freq: Status: Active Protocol: Document 01/12/18 11:46 CCC (Rec: 01/12/18 11:51 CCC [id number]) OT- Subjective Occupational Therapy Visit Type Type Treatment Note Visit Start Time 10:17 Visit Stop Time 10:50 Total Visit Minutes 33 Notes Pt agreeable to get up. OT Pain Assessment Pain When Pain Assessed At Rest Pain Present Pain Present Pain Reported Location Back Intensity 5 Scale Used Numeric (1 - 10) Pain Behaviors Calling Out Crying Facial Grimacing Moaning Restlessness M4 OT- IP ADL's Start: 01/08/18 12:37 Freq: Status: Active Protocol: Document 01/11/18 10:23 CCC (Rec: 01/11/18 11:04 CCC [id number]) OT ADL-Grooming General Evaluation Grooming Ability Moderate Assistance Areas Needing Assistance Retrieving/Set-up of Grooming Items Combing/Brushing Hair Comments OT Grooming Comments Pt able to wash her face and hands. OT ADL-Oral Care General Eval Oral Care Ability Minimal Assistance Areas of Assistance Retrieving/Set-Up of Items Comments Oral Care Comments Pt able to do oral care with assist to hold cup and for set -up due to right UE weakness and decreased control. OT ADL-Toileting General Evaluation Toileting Ability Total Assistance Comments OT Toileting Comments Dependant d/t catheter OT ADL-Bathing Bathing Type Bathing Type Sponge Bath General Evaluation Bathing Ability Maximal Assistance Areas Needing Assistance Retrieving/Setting Up Items Wash/Dry Back Wash/Dry Perineal Area Wash/Dry Lower Extremities Comments OT Bathing Comments Pt able to sit in BSC and assist to wash/dry face and arms otherwise dependent. M6 OT- IP Functional Cognition Start: 01/08/18 12:37 Freq: Status: Active Protocol: Document 01/11/18 10:23 [facility] (Rec: 01/11/18 11:04 [facility] [id number]) Cognitive Factors Limiting Selfcare Function Cognitive Ability Level of Alertness Alert Attention Span Ability Capable of Focused Attention Capable of Sustained Attention Ability to Follow Commands Able to Follow Multi-Step Commands M7 OT- IP Mobility and Balance Start: 01/08/18 12:37 Freq: Status: Active Protocol: Document 01/12/18 11:46 [facility] (Rec: 01/12/18 11:51 [facility] [id number]) OT- Bed Mobility Assessment Rolling Type of Rolling Log Rolling Roll to Left Level of Assistance Maximum Assistance 2 Person Assistance Supine to Sit Supine to Sit Assist Maximum Assistance 2 Person Assistance OT-Transfer Assessment Sit to and From Stand Sit to and from Stand Maximum Assistance 2 Person Assistance Transfers Transfer Ability Maximum Assistance 2 Person Assistance Technique Transfer Destination Chair Transfer Technique Stand Pivot Devices Transfer Assistive Devices Gait Belt Front Wheeled Walker Comments Mobility Comments Pt RUE tend to increase in tone and extend. Tried platform walker and was beneficial however stil needing MAX A x2. M9 OT- IP Assessment and Plan Start: 01/08/18 12:37 Freq: Status: Active Protocol: Document 01/12/18 11:46 [facility] (Rec: 01/12/18 11:51 [facility] [id number]) OT Summary Assessment and Plan Summary OT Impairments Pain Strength Balance Coordination Progress Towards Goals Slow Progress due to Pain Slow Progress due to Activity Tolerance Assessment Summary Due to pain and decreased activity tolerance, pt slow to progress. Inaddition decreased use of right UE on FWW making in difficult to mobilize. Goals Dressing Goal Moderate Assistance Toileting Goal Minimal Assistance Toilet Transfer Goal Minimal Assistance Frequency of Treatment Frequency Of Treatment Once a Day Treatment Plan OT Treatment Plan ADL Training Functional Mobility Patient/Family Education Discharge Planning Other Treatment Recommendations and Next use of AED for dressing needs, Treatment Focus standing at the sink. Discharge Recommendations OT Discharge Recommendations SNF Rehab
--- NOTE | 2018-01-12 12:30 | PM.PN.1 ---
Subjective Date Patient Seen: 01/12/18 Time Patient Seen: 08:30 Interval history: POD #5 status post L1-2,L2-3,L3-4 Ant/Post Instrumentation Fusion w/Bone Graft, L3-4 laminectomy Removal Previous Screws with Dr. Dias. Patient continues to have marked increase in discomfort in lumbar region of the back and pain radiating down both legs. She has had very limited mobility secondary to the discomfort. Last dose of steroids was IV dexamethasone on Thursday. She has not had any Tylenol, and states she has no problems taking this. Only taking oxycodone 10 mg, and Vistaril for pain control but that does not seem to lower her pain below a level of 5. Orthopedic surgery PA in to see patient. Discussed steroid possibility as well as NSAIDs. Plan will be to DC to [facility] once stable. Had urinary retention last night and Adams placed again. Exam Vital Signs (past 8 hours): Vital Signs - 8 hr 01/12/18 07:33 01/12/18 11:00 Temperature 98.2 F 97.9 F Pulse Rate 96 H 74 Respiratory Rate 18 18 Blood Pressure 143/68 H 115/58 L Pulse Oximetry 97 96 Pulse Oximetry 96 Oxygen Delivery Method Room Air Oxygen Flow Rate 0 Narrative Exam Narrative: Exam Narrative: GENERAL: Obese middle-aged woman in no apparent acute distress although she reports 9/10 low back pain. She appears tearful. HEENT: Head normocephalic, atraumatic. Eyes pupils equal round; pale conjunctiva NECK: Supple, no JVD, CHEST: Breath sounds equal bilaterally, bibasilar rales, no wheezes or rhonchi. CARDIAC: Regular rate and rhythm without murmurs, rubs or gallops. ABDOMEN: Soft, nontender. Normoactive bowel sounds. No guarding or rebound. : Adams to down drain in place with clear darin urine. 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 no clubbing or edema. She is able to actively dorsiflex and plantar flex. Sensation intact to lower extremities bilaterally. Pulses symmetrical. Calves are soft, compressible, nontender bilaterally. No redness or edema noted bilaterally. NEUROLOGICAL: Awake alert and oriented x3. Answers all questions appropriately. Has good thought process. Normal muscle strength, with exception of right-sided deficit from previous CVA. SKIN: Warm, dry, no petechiae, no rashes or lesions. Dressing over posterior lumbar region dry and intact. Objective Labs Result Diagrams: 01/09/18 17:05 01/08/18 05:22 Assessment & Plan Plan: Plan: 1. Probable acute blood loss anemia secondary to recent spine surgery although EBL was only 200 mL. Could be dilutional as well. Her recheck hemoglobin was stable. No need for transfusion at this time. Continue iron supplement. Will recheck CBC in am. 2. Lumbar stenosis, status post lumbar spine laminectomy and fusion surgery: This is postop day 5 for L1-L2, L2-L3, L3-L4 anterior posterior instrumentation fusion with bone graft, L3-L4 laminectomy and removal of previous screws. She is followed by orthopedic services. She continues to have limited mobility secondary to pain. Despite receiving oxycodone as needed she continues to have 9/10 lumbar pain radiating to both legs primarily when she axial loads. I discussed steroids as well as NSAID therapy with the orthopedic PA. One time dose of methylprednisolone 10 mg administered. Continue PT/OT. Encourage out of bed mobility. 3. Hypertension: Her blood pressure is reasonably controlled. She was noted to be tachycardic, possibly secondary to pain but today has a heart rate in the mid 70s. We will continue her on low-dose metoprolol. 4. Bipolar disorder: Continue lamotrigine and lithium per outpatient dosing. 5. DVT prophylaxis: Consider starting DVT prophylaxis when it is considered safe by orthopedic service. 6. Disposition: Out of state family is concerned about her being discharged to a intermediate facility prematurely. Plan for transfer to intermediate facility this week when she is more mobile and requires less pain management. Quality VTE Deep Vein Thrombosis/Pulmonary Embolism Present on Admission: No
[2018-01-12] MEDS: NAPROXEN 250 MG TABLET PO (13:41)
[2018-01-12 13:48] VITALS: BMI 25.7
--- NOTE | 2018-01-12 14:18 | P.PN_ITS ---
Subjective Date Patient Seen: 01/12/18 Time Patient Seen: 14:16 Interval history: The pain is getting better. Still severe back pain. The legs her when she is up but they are not as bad as they were prior to surgery or as bad as the back. Exam Vital Signs (past 8 hours): Vital Signs - 8 hr 3 01/12/18 07:33 01/12/18 11:00 Temperature 98.2 F 97.9 F Pulse Rate 96 H 74 Respiratory Rate 18 18 Blood Pressure 143/68 H 115/58 L Pulse Oximetry 97 96 Pulse Oximetry 96 Oxygen Delivery Method Room Air Oxygen Flow Rate 0 Back/Spine/Pelvis Other: Dressing CDI 5/5 motor both lower extremities Objective Labs Result Diagrams: 01/09/18 17:05 01/08/18 05:22 Assessment & Plan Post-op Postoperative Procedures Operation Date: 01/07/18 11:45 Actual Procedures Side Surgeon p L1-2,L2-3,L3-4 Ant/Post Instru Fusion w/Bone Graft, L3-4 laminectomy Removal Previous Screws Campos Dias MD I am going to switch her over to IV steroids for 24 hr dosing. Hopefully things will calm down enough that she will be able to tolerate going to group home tomorrow. Time Spent With Patient less than 15 minutes Quality VTE Deep Vein Thrombosis/Pulmonary Embolism Present on Admission: No
[2018-01-12] MEDS: DEXAMETHASONE 10 MG/ML VIAL IV (14:43)
--- NOTE | 2018-01-12 14:50 | PT.IPTN ---
Current Diagnoses Acute posthemorrhagic anemia (01/07/18) Major depressive disorder, single episode, unspecified (01/07/18) Other forms of scoliosis, lumbar region (01/07/18) Scoliosis, unspecified (01/07/18) Spinal stenosis, lumbar region with neurogenic claudication (01/07/18) Surgery Performed Operation Date: 01/07/18 11:45 Actual Procedures p L1-2,L2-3,L3-4 Ant/Post Instru Fusion w/Bone Graft, L3-4 laminectomy Removal Previous Screws - Campos Dias MD Physical Therapy Treatment Note M2 PT-IP Current Condition Start: 01/08/18 08:12 Freq: NEEDED Status: Active Protocol: Document 01/10/18 11:15 RCC (Rec: 01/10/18 11:33 RCC [id number]) Physical Therapy Current Condition Current Condition Evaluation Date 01/08/18 Treatment Diagnosis impaired mobility s/p L1-L4 lami revision Onset Date 01/07/18 Post Operative Precautions Lumbar Precautions Log Roll No Twisting Limit Bending Lifting Restriction of 10 lbs Gait Belt above Incisional Area M3 PT-IP Subjective Start: 01/08/18 08:12 Freq: NEEDED Status: Active Protocol: Document 01/12/18 14:47 AB (Rec: 01/12/18 14:50 AB [id number]) Subjective Physical Therapy Visit Type Type Treatment Note Visit Start Time 13:15 Visit Stop Time 13:32 Total Visit Minutes 17 Number of PRODUCTION GRIP Visits 0 Physical Therapy Visit Comments Patient Comments pt agreeable to do therapy Therapy Pain Assessment Pain When Pain Assessed At Rest Pain Present Pain Present Pain Reported Location Back Pain Management Techniques Timing of Activity with Medications M4 PT-IP Mobility and Gait Start: 01/08/18 08:12 Freq: NEEDED Status: Active Protocol: Document 01/12/18 14:47 AB (Rec: 01/12/18 14:50 AB [id number]) PT-Bed Mobility Assessment Supine to Sit Supine to Sit Maximum Assistance 1 Person Assistance Sit to Supine Sit to Supine Maximum Assistance 2 Person Assistance PT-Transfer Assessment Sit to and From Stand Sit to and from Stand Maximum Assistance 2 Person Assistance Equipment Transfer Assistive Device Gait Belt Platform Walker Transfers Transfer Destination Chair Transfer Technique Stand Step Pivot Transfer Ability Level of Assist Maximum Assistance 2 Person Assistance Gait Assessment Gait Gait Assistance Required: Maximum Assistance 2 Person Assist Distance (Feet) (feet) 8 Able to Maintain Weight Bearing Status Yes During Gait Assistive Devices Assistive Device Gait Belt Front Wheeled Walker Orthotic/Prosthetic Devices or Brace: No Gait Deviations General Gait Pattern Antalgic Decreased Stride Length Decreased Feet Clearance Step-to Gait Factors Limiting Gait Function Factors Limiting Gait Function Decreased Activity Tolerance Decreased Strength Pain Poor Balance Poor Safety Awareness M5 PT-IP Objective Assessments Start: 01/08/18 08:12 Freq: NEEDED Status: Active Protocol: Document 01/08/18 11:44 RS (Rec: 01/08/18 12:19 RS [id number]) Orientation Orientation/Cognition Level of Alertness Alert Gross Range of Motion Lower Extremity ROM Assessment Within Functional Limits Strength Comments Strength Comments BLE not formally assessed, functionally strong enough to mobilize out of bed. M6 PT-IP Treatment Start: 01/08/18 08:12 Freq: NEEDED Status: Active Protocol: Document 01/10/18 11:15 RCC (Rec: 01/10/18 11:33 RCC [id number]) Physical Therapy Treatment Education Post-Op Education Precautions Safety M7 PT-IP Assessment and Plan Start: 01/08/18 08:12 Freq: NEEDED Status: Active Protocol: Document 01/12/18 14:47 AB (Rec: 01/12/18 14:50 AB [id number]) PT Summary Assessment and Plan Potential Rehabilitation Potential Fair Summary Impairments Pain ROM Strength Balance Coordination Sensation Bed Mobility Transfers Gait Activity Tolerance Progress Towards Goals Slow Progress due to Pain Assessment Summary pt requiring 2 person assist with mobility and will need SNF rehab to improve mobility and function prior to d/c home . Goals Bed Mobility Goal Minimal Assistance Transfer Goal Contact Guard Assistance Front Wheeled Walker Gait Goal Contact Guard Assistance Front Wheel Walker Gait Distance 50 Days to Meet Goals 2 Frequency of Treatment Frequency Of Treatment Twice a Day Treatment Plan Physical Therapy Treatment Plan Bed Mobility Training Transfer Training Gait Training Therapeutic Exercise Hot or Cold Pack Other Recommendations and Next Treatment bed mobility, ambulation Focus Recommendations To Nursing Amount of Assist Needed 2 Person Assist Discharge Recommendations PT Discharge Recommendations SNF Rehab
[2018-01-12 15:00] VITALS: BP 137/66; PULSE 81; RESP 18; TEMP 36.7; O2SAT 92
[2018-01-12 20:18] VITALS: BP 141/66; PULSE 89; RESP 18; TEMP 36.9; O2SAT 94
[2018-01-12] MEDS: LITHIUM ER 300 MG TABLET PO (21:36)
[2018-01-12] MEDS: GABAPENTIN 400 MG CAPSULE PO (21:37)
[2018-01-12] MEDS: lamoTRIgine 25 MG CHEW TABLET PO (21:37)
[2018-01-12] MEDS: DEXAMETHASONE 4 MG/ML VIAL IV (21:37)
[2018-01-12] MEDS: SENNOSIDES 8.6 MG TABLET 17.2 MG PO (21:38)
[2018-01-13 00:26] VITALS: BP 133/65; PULSE 89; RESP 16; TEMP 36.6; O2SAT 94
[2018-01-13] MEDS: DEXAMETHASONE 4 MG/ML VIAL IV ×2 (03:04→08:17)
[2018-01-13 05:15] VITALS: BP 131/65; PULSE 73; RESP 16; TEMP 36.9; O2SAT 93
[2018-01-13 05:50] LABS: Add Manual Diff / Slide Review NO; Hematocrit 27.9 % (36-46); Hemoglobin 9.6 g/dL (12.0-16.0); Lymphocytes Percent Auto 6.2 % (25-40); Mean Corpuscular HGB Conc 34.5 % (30-36); Mean Corpuscular Hemoglobin 29.6 PG (26-34); Mean Corpuscular Volume 85.9 fL (80-100); Monocytes Percent Auto 3.4 % (3-14); Neutrophils Absolute Auto 8700 /uL (3000-5900); Neutrophils Percent Auto 90.4 % (50-75); Platelet Count 293 X10^3/uL (150-400); Red Blood Cell Count 3.24 X10^6/uL (4.0-5.2); Red Cell Distribution Width 14.4 % (11.6-14.8); White Blood Cell Count 9.6 X10^3/uL (4.5-11.0)
[2018-01-13] MEDS: OXYCODONE IR 5 MG TABLET PO (06:44)
[2018-01-13 07:00] VITALS: BP 139/66; PULSE 88; RESP 12; TEMP 36.8; O2SAT 95
--- NOTE | 2018-01-13 08:06 | P.PN_ITS ---
Subjective Date Patient Seen: 01/13/18 Time Patient Seen: 08:06 Interval history: Pain seems to be much better after the steroids. Exam Vital Signs (past 8 hours): Vital Signs - 8 hr 3 01/13/18 00:26 01/13/18 05:15 Temperature 97.9 F 98.5 F Pulse Rate 89 73 Respiratory Rate 16 16 Blood Pressure 133/65 H 131/65 H Pulse Oximetry 94 93 Pulse Oximetry 93 Oxygen Delivery Method Room Air Oxygen Flow Rate 0 Back/Spine/Pelvis Other: Dressing CDI. 5/5 motor both lower extremities Objective Labs Result Diagrams: 01/13/18 05:03 01/08/18 05:22 Labs: Laboratory Results - last 24 hr 01/13/18 05:03 WBC 9.6 RBC 3.24 L Hgb 9.6 L Hct 27.9 L MCV 85.9 MCH 29.6 MCHC 34.5 RDW 14.4 Plt Count 293 Neut % (Auto) 90.4 H Lymph % (Auto) 6.2 L Hooker % (Auto) 3.4 Eos % (Auto) 0.0 L Baso % (Auto) 0.0 Neut # (Auto) 8700 H Assessment & Plan Post-op Postoperative Procedures Operation Date: 01/07/18 11:45 Actual Procedures Side Surgeon p L1-2,L2-3,L3-4 Ant/Post Instru Fusion w/Bone Graft, L3-4 laminectomy Removal Previous Screws Campos Dias MD doing much better. Plan for discharge to custodial today. Time Spent With Patient less than 15 minutes Quality VTE Deep Vein Thrombosis/Pulmonary Embolism Present on Admission: No
--- NOTE | 2018-01-13 08:10 | P.DS_ITS ---
History of Present Illness Chief complaint: fusion w/bone graft-see collection notes/CPTs Narrative: Judith Montoya is a 77 year old female with back and leg pain who was admitted on 01/07/2018 for a lumbar laminectomy and fusion. Discharge Providers Date of admission: 01/07/18 10:02 Consults: 01/07/18 19:28 Consult to Discharge Planning Routine Comment: Consult to Occupational Therapy Evaluate & Treat Comment: Physician Instructions: Evaluate and treat Consult to Physical Therapy Evaluate & Treat Comment: Physician Instructions: Evaluate and Treat 01/09/18 11:54 Consult to Hospitalist Service Routine Comment: Consulting Provider: Luz Marques Reason for consultation: medication mangement Has provider been notified: Yes Discharge provider: Campos Dias MD Summary Discharge Diagnosis: She underwent a L1 through 3 anterior and posterior instrumented fusion with a L3-4 laminectomy on 01/07/2018. She had significant postoperative pain control issues. This was mostly back pain but she was still having her preoperative leg spasms. We finally started her on a dose of IV steroids and this seem to drastically improve her pain. Exam Vital Signs (past 8 hours): Vital Signs - 8 hr 3 01/13/18 00:26 01/13/18 05:15 Temperature 97.9 F 98.5 F Pulse Rate 89 73 Respiratory Rate 16 16 Blood Pressure 133/65 H 131/65 H Pulse Oximetry 94 93 Pulse Oximetry 93 Oxygen Delivery Method Room Air Oxygen Flow Rate 0 Back/Spine/Pelvis Other: 5/5 motor both lower extremities. Dressing clean dry intact Objective Labs Result Diagrams: 01/13/18 05:03 01/08/18 05:22 Labs: Laboratory Results - last 24 hr 01/13/18 05:03 WBC 9.6 RBC 3.24 L Hgb 9.6 L Hct 27.9 L MCV 85.9 MCH 29.6 MCHC 34.5 RDW 14.4 Plt Count 293 Neut % (Auto) 90.4 H Lymph % (Auto) 6.2 L [place] % (Auto) 3.4 Eos % (Auto) 0.0 L Baso % (Auto) 0.0 Neut # (Auto) 8700 H Discharge Plan Discharge Plan Patient Disposition: SNF Transfer to: [facility] Under care of provider: Facility Transportation: Facility vehicle I certify the postop hospital nursing home care is medically necessary on a continuing basis for any conditions for which he/ she received care during this hospitalization.: Yes The receiving facility has agreed to accept transfer and provide medical treatment.: Yes Discharge Med Rec/Prescriptions Prescriptions: New oxycodone 5 mg Tablet See Label Instructions .ROUTE .COMPLEX PRN (Reason: Pain, Moderate) Qty: 45 RF: 0 lisinopril 10 mg Tablet 10 mg PO DAILY Qty: 30 RF: 0 Continue lithium carbonate [Lithobid] 300 mg Tablet Extended Release 300 mg PO DAILY RF: 0 lamotrigine [Lamictal] 25 mg Tablet 25 mg PO BEDTIME RF: 0 pantoprazole 40 mg Tablet,Delayed Release (Dr/Ec) 40 mg PO QAM RF: 0 docusate sodium [Dulcolax Stool Softener (dss)] 100 mg Capsule 400 mg PO DAILY RF: 0 gabapentin 100 mg Capsule 600 mg PO SEEINSTR RF: 0 estradiol 0.5 mg Tablet 0.5 mg PO EVERY OTHER DAY RF: 0 oxybutynin chloride 5 mg Tablet 5 mg PO BID RF: 0 lamotrigine [Lamictal] 100 mg Tablet 100 mg PO TID RF: 0 Discontinued lisinopril 20 mg Tablet 20 mg PO DAILY RF: 0 oxycodone 10 mg Tablet 10 mg PO Q3H PRN (Reason: pain) RF: 0 Discharge Data Attending Provider: Campos Dias Admit Date/Time: 01/07/18 10:02 Discharges patient from system. Discharge Date/Time: 01/13/18 10:58 Quality VTE Deep Vein Thrombosis/Pulmonary Embolism Present on Admission: No
[2018-01-13] MEDS: LISINOPRIL 10 MG TABLET PO (08:16)
[2018-01-13] MEDS: OXYCODONE IR 10 MG TABLET PO (08:16)
[2018-01-13] MEDS: DOCUSATE 100 MG CAPSULE PO (08:16)
[2018-01-13] MEDS: OXYBUTYNIN 5 MG TABLET PO (08:17)
[2018-01-13] MEDS: ASCORBIC ACID 500 MG TABLET PO (08:17)
[2018-01-13] MEDS: METOPROLOL 25 MG TABLET PO (08:17)
[2018-01-13] MEDS: FERROUS SULFATE 325 MG TABLET PO (08:18)
[2018-01-13] MEDS: PANTOPRAZOLE 40 MG TABLET PO (08:18)
[2018-01-13] MEDS: lamoTRIgine 100 MG TABLET PO (08:18)
[2018-01-13] MEDS: GABAPENTIN 100 MG CAPSULE 200 MG PO (08:19)
[2018-01-13] MEDS: SODIUM CHLORIDE 0.9% FLUSH 10 ML IV (08:19)
[2018-01-13] MEDS: hydrOXYzine pamoate 25 MG CAPSULE PO (08:32)
--- NOTE | 2018-01-13 09:54 | PM.PN.1 ---
Subjective Date Patient Seen: 01/13/18 Time Patient Seen: 07:56 Interval history: Postop day 6. Patient appears to be markedly improved in pain control today. Sitting upright in bed. Patient is smiling and states her pain is 4/10. Exam Vital Signs (past 8 hours): Vital Signs - 8 hr 01/13/18 05:15 01/13/18 07:00 Temperature 98.5 F 98.2 F Pulse Rate 73 88 Respiratory Rate 16 12 Blood Pressure 131/65 H 139/66 H Pulse Oximetry 93 95 Pulse Oximetry 95 Oxygen Delivery Method Room Air Oxygen Flow Rate 0 Narrative Exam Narrative: Exam Narrative: GENERAL: 77-year-old woman in mild discomfort. She reports 4/10 back discomfort at this time. After being started on a 24 hr regimen of steroids. HEENT: Head normocephalic, atraumatic. Eyes pupils equal round; pale conjunctiva NECK: Supple, no JVD, CHEST: Breath sounds equal bilaterally, no rales, no wheezes or rhonchi. CARDIAC: Regular rate and rhythm without murmurs, rubs or gallops. ABDOMEN: Soft, nontender. Normoactive bowel sounds. No guarding or rebound. : Adams to down drain was in place until approximately 430 this morning at which time it was discontinued. Patient has not voided since. 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 no clubbing or edema. She is able to actively dorsiflex and plantar flex. Sensation intact to lower extremities bilaterally. Pulses symmetrical. Calves are soft, compressible, nontender bilaterally. No redness or edema noted bilaterally. NEUROLOGICAL: Awake alert and oriented x3. Answers all questions appropriately. Has good thought process. Normal muscle strength, with exception of right-sided deficit from previous CVA. SKIN: Warm, dry, no petechiae, no rashes or lesions. Dressing over posterior lumbar region dry and intact. Objective Labs Result Diagrams: 01/13/18 05:03 01/08/18 05:22 Labs: Laboratory Results - last 24 hr 01/13/18 05:03 WBC 9.6 RBC 3.24 L Hgb 9.6 L Hct 27.9 L MCV 85.9 MCH 29.6 MCHC 34.5 RDW 14.4 Plt Count 293 Neut % (Auto) 90.4 H Lymph % (Auto) 6.[address] [place] % (Auto) 3.4 Eos % (Auto) 0.0 L Baso % (Auto) 0.0 Neut # (Auto) 8700 H Assessment & Plan Plan: Plan: 1. Probable acute blood loss anemia secondary to recent spine surgery although EBL was only 200 mL. Could be dilutional as well. Her recheck hemoglobin was stable. No need for transfusion at this time. Continue iron supplement. 2. Lumbar stenosis, status post lumbar spine laminectomy and fusion surgery: This is postop day 5 for L1-L2, L2-L3, L3-L4 anterior posterior instrumentation fusion with bone graft, L3-L4 laminectomy and removal of previous screws. She is followed by orthopedic services. Yesterday she was started on 24 hr regiment of Decadron 4 mg IV q.6 hours. Her mobility has improved since yesterday but continues to be limited secondary to discomfort. She will benefit from snf facility occupational and physical therapy. She appears ready for discharge to snf facility. 3. Hypertension: Her blood pressure is reasonably controlled. She was noted to be tachycardic, possibly secondary to pain but today has a heart rate in the mid 70s. I do not feel she will benefit from the metoprolol this point in time so it has been discontinued. Will continue her on lisinopril 10 mg p.o. daily. 4. Bipolar disorder: Continue lamotrigine and lithium per outpatient dosing. 5. DVT prophylaxis: Not indicated at this point in time as she is becoming more mobile. 6. Disposition: Transfer to snf facility this morning. Quality VTE Deep Vein Thrombosis/Pulmonary Embolism Present on Admission: No
--- NOTE | 2018-01-13 09:58 | P.PN_ITS ---
Subjective Date Patient Seen: 01/13/18 Time Patient Seen: 07:56 Interval history: Postop day 6. Patient appears to be markedly improved in pain control today. Sitting upright in bed. Patient is smiling and states her pain is 4/10. Exam Vital Signs (past 8 hours): Vital Signs - 8 hr 3 01/13/18 05:15 01/13/18 07:00 Temperature 98.5 F 98.2 F Pulse Rate 73 88 Respiratory Rate 16 12 Blood Pressure 131/65 H 139/66 H Pulse Oximetry 93 95 Pulse Oximetry 95 Oxygen Delivery Method Room Air Oxygen Flow Rate 0 Narrative Exam Narrative: Exam Narrative: GENERAL: 77-year-old woman in mild discomfort. She reports 4/10 back discomfort at this time. After being started on a 24 hr regimen of steroids. HEENT: Head normocephalic, atraumatic. Eyes pupils equal round; pale conjunctiva NECK: Supple, no JVD, CHEST: Breath sounds equal bilaterally, no rales, no wheezes or rhonchi. CARDIAC: Regular rate and rhythm without murmurs, rubs or gallops. ABDOMEN: Soft, nontender. Normoactive bowel sounds. No guarding or rebound. : Adams to down drain was in place until approximately 430 this morning at which time it was discontinued. Patient has not voided since. 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 no clubbing or edema. She is able to actively dorsiflex and plantar flex. Sensation intact to lower extremities bilaterally. Pulses symmetrical. Calves are soft, compressible, nontender bilaterally. No redness or edema noted bilaterally. NEUROLOGICAL: Awake alert and oriented x3. Answers all questions appropriately. Has good thought process. Normal muscle strength, with exception of right-sided deficit from previous CVA. SKIN: Warm, dry, no petechiae, no rashes or lesions. Dressing over posterior lumbar region dry and intact. Objective Labs Result Diagrams: 01/13/18 05:03 01/08/18 05:22 Labs: Laboratory Results - last 24 hr 01/13/18 05:03 WBC 9.6 RBC 3.24 L Hgb 9.6 L Hct 27.9 L MCV 85.9 MCH 29.6 MCHC 34.5 RDW 14.4 Plt Count 293 Neut % (Auto) 90.4 H Lymph % (Auto) 6.[address] [place] % (Auto) 3.4 Eos % (Auto) 0.0 L Baso % (Auto) 0.0 Neut # (Auto) 8700 H Assessment & Plan Plan: Plan: 1. Probable acute blood loss anemia secondary to recent spine surgery although EBL was only 200 mL. Could be dilutional as well. Her recheck hemoglobin was stable. No need for transfusion at this time. Continue iron supplement. 2. Lumbar stenosis, status post lumbar spine laminectomy and fusion surgery: This is postop day 5 for L1-L2, L2-L3, L3-L4 anterior posterior instrumentation fusion with bone graft, L3-L4 laminectomy and removal of previous screws. She is followed by orthopedic services. Yesterday she was started on 24 hr regiment of Decadron 4 mg IV q.6 hours. Her mobility has improved since yesterday but continues to be limited secondary to discomfort. She will benefit [facility] and physical [facility]. She appears ready for discharge to [facility] facility. 3. Hypertension: Her blood pressure is reasonably controlled. She was noted to be tachycardic, possibly secondary to pain but today has a heart rate in the mid 70s. I do not feel she will benefit from the metoprolol this point in time so it has been discontinued. Will continue her on lisinopril 10 mg p.o. daily. 4. Bipolar disorder: Continue lamotrigine and lithium per outpatient dosing. 5. DVT prophylaxis: Not indicated at this point in time as she is becoming more mobile. 6. Disposition: Transfer to [facility] facility this morning. Quality VTE Deep Vein Thrombosis/Pulmonary Embolism Present on Admission: No
[2018-01-13] MEDS: ONDANSETRON 4 MG/2 ML INJ IV (10:09)
--- NOTE | 2018-01-13 10:42 | CM.DPC ---
DCP: continued: Case again received and d/c to snf orders noted/ Discussed with ortho SAIMA and hospitalist Javed. Final d/c orders after collarboration of both were received and efaxed to [facility] . [facility] was set up for 1045, pt was updated and agreeable to same. Spoke by phone with Debora and updated her. Family will see pt later today at [facility] and Debora will call her. (confirmed that pt has her cell and her hat lining blocker packed into her belongings). P: as noted. [facility] should be here any moment. [place] Muller was updated throughout the morning.
--- NOTE | 2018-01-13 10:51 | PC.NURSE ---
1015 replaced baldwin cathper per Javed Anthony RN, Had pt up to void at 0950, Pt unable to void post baldwin dc at 0620 this AM. 1100 Pt transfered to [facility] via ambulance, called report to the facility
== END 2018-01-13 10:58 | DRG 454 ==
PROVIDERS: Nurse Practitioner Acute Care; Physician Assistant; Admitting Provider Orthopaedic Surgery; Visit Provider Orthopaedic Surgery
PROC: 0SG00A0 Fusion of Lumbar Vertebral Joint with Interbody Fusion Device, Anterior Approach, Anterior Column, Open Approach (ICD-10-PCS; CPT 22558; principal; 2018-01-07 11:45)
DX: M48.062 Spinal stenosis, lumbar region with neurogenic claudication (principal); D62 Acute posthemorrhagic anemia; M41.86 Other forms of scoliosis, lumbar region; Z86.73 Personal history of transient ischemic attack (TIA), and cerebral infarction without residual deficits; Z87.891 Personal history of nicotine dependence; F31.9 Bipolar disorder, unspecified; I10 Essential (primary) hypertension; G40.909 Epilepsy, unspecified, not intractable, without status epilepticus; K21.9 Gastro-esophageal reflux disease without esophagitis; R33.9 Retention of urine, unspecified; M62.838 Other muscle spasm; G89.18 Other acute postprocedural pain
CPT/HCPCS: 36415; 72100; 76001; 80048; 81003; 85014; 85018; 85025; 94762; 97116; 97162; 97165; 97530; 97535; C1776; J0131; J0330; J0595; J1100; J2250; J2270; J2274; J2405; J2704; J3010

== ENCOUNTER 2018-07-26 12:39 | Day surgery (SDC) | payer MEDICARE, OTHER, SELFPAY ==
[2018-01-07 19:53] VITALS: BMI 25.7
[2018-07-21 11:18] VITALS: BMI 24.9
[2018-07-26] VITALS (10 sets, daily range): BP systolic 117–139; BP diastolic 55–76; PULSE 61–92; RESP 9–20; TEMP 36.2–36.6; O2SAT 92–98; BMI 24.5
--- NOTE | 2018-07-26 | PATH_ITS ---
[facility] Accession Number: [id number] . 01 Material submitted: . PART A: BILATERAL SALPINGOOPHRECTOMY PART B: BIOPSY OF BOWEL IMPLANT . 02 Diagnosis: A. Bilateral Fallopian Tubes and Ovaries, Bilateral Salpingo-oophorectomy: Bilateral serous cystadenomas. Bilateral fallopian tubes with no diagnostic abnormality. Negative for malignancy. . B. Bowel Implant, Biopsy: Fimbriated fallopian tube, suggestive of avulsed adhesion. Negative for neoplasm. [facility]/08/02/2018 . 02 Electronically signed: . Roman Rosario MD, PhD, Pathologist NPI- [id number] . 01 Gross description: . (A) Received in formalin, labeled bilateral salpingo-oophorectomy, are two ovaries (ovary #1-8.2 x 6.5 x 2.5 cm; ovary #2-3.3 x 2.7 x 1.8 cm) and two fimbriated fallopian tubes (detached: length-5.5 cm, diameter-0.3 cm; attached: length-4.2 cm, diameter-0.5 cm). The attached fallopian tube is connected to ovary #2. The ovaries have balderas-yellow smooth shiny flat serosa and balderas-pink solid cystic parenchyma with corpus albicans identified. Ovary #1 contains a scant amount of normal ovarian parenchyma. the cavities (0.1 cm-6.5 cm) contain clear yellow tacky fluid. The linings are smooth and flat with no excrescences identified. The fallopian tubes have pale bradley-pink and balderas-pink smooth shiny serosa and balderas unremarkable lumens. Section code: (A1, A2) ovary #1, loan representative serial sections; (A3, A4) ovary #2, loan representative serial sections; (A5) detached fallopian tube, loan representative serial sections; (A6) detached fimbria, bivalved, entirely submitted; (A7) attached fallopian, loan representative serial sections; (A8) attached fimbria, bivalved, entirely submitted. Additional sections: (A9, A10) additional sections of ovary. (B) Received in formalin, labeled biopsy of bowel implant, is a piece of balderas-white polypoid tissue (1.5 x 1.2 x 0.4 cm). The resection margin is inked black. Trisected and entirely submitted in cassette B1. . Note: Per the requisition, this is a split sample with cell washing sent to cytology for analysis. (JM:[id number]) (MS:[id number]) /MRV . 02 Pathologist provided ICD-10: D27.9 . 02 CPT . 101058, 260744 Performed at: 01 [facility] [address] [facility], [place], [place] [id number] MD Matt Ho MD Phone: [phone] Performed at: 02 [facility] [address] [place], [place] [id number] MD Rin Giang MD Phone: [phone]
[2018-07-26] MEDS: LACTATED RINGERS 1,000 ML 100 ML IV (13:11)
--- NOTE | 2018-07-26 13:38 | PM.PREOP ---
Pre-operative Note Interval Note Pre-op Check: Yes History & Physical Reviewed by Physician and Yes Exam Performed Changes: No
[2018-07-26] MEDS: CLINDAMYCIN 600 MG/50 ML PIGGYBACK 50 MG IV (13:40)
[2018-07-26] MEDS: BUPIVACAINE 0.5% W/ EPI (PF) VIAL 30 ML INJ (14:05)
--- NOTE | 2018-07-26 14:10 | SUR.OPER ---
Lithotomy on padded OR bed, head on pillow, arms secured on padded arm boards at <90 degrees abduction. Legs secured in padded yellow fins stirrups.
[2018-07-26] MEDS: OXYCODONE/ACETAMINOPHEN 5/325 TABLET 1 TAB PO (16:00)
--- NOTE | 2018-07-26 16:55 | PM.OP.1 ---
Operative Date/Time/Diagnoses Date of procedure: 07/26/18 Time of procedure: 14:55 Pre-op diagnosis: Bilateral ovarian cysts Post-op diagnosis: same Procedure & Clinicians Procedure: Laparoscopic bilateral salpingo-oophorectomy with biopsy of cystic mass on the small intestine Same procedure as scheduled: Yes Indications: Bilateral complex ovarian cysts Surgeon: Lucila Caputo Click Yes if Unassisted: Yes Anesthesia Type: General Operative Notes Findings: Bilateral ovarian cysts. Small cystic mass on the small intestine Closure Type: primary Specimen(s): other (Bilateral tubes and ovaries and biopsy of the mass on the small intestine as well as pelvic fluid cytology) Estimated Blood Loss (mL): 10 Blood products transfused: none Procedure in detail: Patient was brought to the operating room where she underwent general anesthesia. She was placed in low yellowfin stirrups and prepped and draped in usual sterile fashion. Antibiotics were in prior to beginning of the case. Pulsatile stockings were in place and functional. Warming was in place. The area of the incisions were injected with half percent Marcaine with epinephrine. An incision was made in the umbilicus. The incision was carried down the fascia layer which was incised transversely and held with 0 Polysorb suture. The peritoneum was entered sharply. The [place] cannula was placed in the incision. The abdomen was insufflated with CO2. 2 5 mm trochars were placed in the right and left lower quadrant under direct visualization after incising the skin. There did not appear to be any damage with placement of the trocars. The right fallopian tube was grasped and the infundibulopelvic ligament was clamped cut and ligated with the PK generator. Sequential bites taken along the broad ligament hugging the ovary until the tube and ovary were . Same procedure was performed on the left side. The ovaries and tubes were placed into an Endo-Catch bag that had been placed in the umbilical incision. The tubes and ovaries were removed without spillage. Using scissors the small area cystic mass on the small intestine was removed with adequate hemostasis noted. The abdomen was irrigated and fluid sent for cytology. Adequate hemostasis was noted. The CO2 was allowed to escape from the abdomen. The trochars were removed. The fascial layer of the umbilical incision was closed with the prior placed 0 Vicryl suture. Skin was closed with 4-0 Monocryl. The patient went to recovery room in good condition. Complications: none Condition: stable Disposition: same day surgery Plan for aftercare: Home when awake and stable
--- NOTE | 2018-07-30 | PATH_ITS ---
Note [facility] Accession Number: [id number] TESTS RESULT FLAG UNITS REF RANGE LAB Clinician Provided Cytology Information No. of containers..01 ThinPrep Vial 01 CELL WASHING DIAGNOSIS: 02 CELL WASHING NEGATIVE FOR MALIGNANT CELLS. Pathologist ICD10: 02 D27.9 02 Roman Rosario MD, PhD, Pathologist NPI- [id number] Giovanny Wagoner, Electronics Computer Mechanic ([facility]) 01 15 CC, PINK, CLOUDY /LCS FLAG LEGEND: L-Low Normal,H-High Normal,LL-Alert Low,HH-Alert High <-Panic Low,>-Panic High,A-Abnormal,AA-Critical Abnormal Performed at: 01 =Z [facility] [address], [place] [address] Matt Ho MD, 02 L[facility] [address] [place] [id number] Rin Giang MD, Performed at: 01 [facility] [address], [place], [place] [id number] MD Matt Ho MD Phone: [phone]
== END 2018-07-26 16:50 | disposition home or self-care (01) ==
PROVIDERS: Visit Provider Specialist
PROC: 0UT24ZZ Resection of Bilateral Ovaries, Percutaneous Endoscopic Approach (ICD-10-PCS; CPT 58661; principal; 2018-07-26 13:30)
DX: D27.1 Benign neoplasm of left ovary (principal); D27.0 Benign neoplasm of right ovary; Z87.891 Personal history of nicotine dependence; I69.359 Hemiplegia and hemiparesis following cerebral infarction affecting unspecified side; I10 Essential (primary) hypertension; N39.498 Other specified urinary incontinence
CPT/HCPCS: 58661; 44238; 88305; 88307; J2405; J2704; J3010